=== PATIENT | female | born 1970 | race American Indian/Alaskan Native ===

== ENCOUNTER 2018-03-11 02:03 | Emergency (ER) | payer SELFPAY ==
[2018-03-11 08:17] VITALS: BP 122/72
[2018-03-11 09:15] LABS: Bacteria,Urine 2+ /HPF (Negative); Mucus,Urine 2+ /HPF
[2018-03-11 09:18] LABS: HCG Qualitative,Urine Negative (Negative)
[2018-03-11 09:29] LABS: Bilirubin,Urine NEG (Negative); Blood,Urine SM (Negative); Color,Urine Yellow (Yellow); Protein,Urine <15 mg/dL mg/dL (Negative); Urobilinogen,Urine < 2.0 mg/dL (<2.0)
--- NOTE | 2018-03-11 11:43 | Emergency Department Report ---
ED Abdominal Pain HPI - General Chief Complaint: Abdominal Pain Stated Complaint: HEADACHE,BACK PAIN Time Seen by Provider: 03/11/18 11:24 Source: patient Mode of arrival: Ambulatory Limitations: No Limitations - History of Present Illness Initial Comments: Patient is a 47-year-old black female who is complaining of lower abdominal pain dysuria for the last 3-4 days. Patient also states she's had a mild headache as 9 out of 10 severity. Patient is a poor historian. Patient states that it should think she had a seizure in the lobby as doesn't have a history of seizure. Patient states she just noted that she was shaking. Patient did not answer to come back multiple times from the waiting room. Patient was sleeping. Patient denies any nausea vomiting diarrhea at this time. Severity scale (0 -10): 5 - Related Data Previous Rx's Medication Instructions Recorded Last Taken Type Ibuprofen [Motrin] 600 mg PO Q8H PRN #20 tablet 03/11/18 Unknown Rx Nitrofurantoin Monohyd/M-Cryst 100 mg PO BID #14 capsule 03/11/18 Unknown Rx [Macrobid 100 mg Capsule] Allergies Allergy/AdvReac Type Severity Reaction Status Date / Time Penicillins Allergy Swelling Verified 03/11/18 03:27 ED Review of Systems ROS: Stated complaint: HEADACHE,BACK PAIN Other details as noted in HPI Comment: All other systems reviewed and negative ED Past Medical Hx - Past Medical History Previous Medical History?: Yes Additional medical history: hypoglycemia - Surgical History Past Surgical History?: Yes Additional Surgical History: c section - Social History Smoking Status: Never Smoker Substance Use Type: None - Medications Home Medications: Home Medications Medication Instructions Recorded Confirmed Last Taken Type Ibuprofen [Motrin] 600 mg PO Q8H PRN #20 tablet 03/11/18 Unknown Rx Nitrofurantoin Monohyd/M-Cryst 100 mg PO BID #14 capsule 03/11/18 Unknown Rx [Macrobid 100 mg Capsule] ED Physical Exam - General Limitations: No Limitations General appearance: alert, in no apparent distress - Head Head exam: Present: atraumatic, normocephalic - Eye Eye exam: Present: normal appearance - ENT ENT exam: Present: mucous membranes moist - Neck Neck exam: Present: normal inspection - Respiratory Respiratory exam: Present: normal lung sounds bilaterally. Absent: respiratory distress, wheezes, rales, rhonchi - Cardiovascular Cardiovascular Exam: Present: regular rate, normal rhythm. Absent: systolic murmur, diastolic murmur, rubs, gallop - GI/Abdominal GI/Abdominal exam: Present: soft, normal bowel sounds. Absent: distended, tenderness, guarding, rebound - Extremities Exam Extremities exam: Present: normal inspection - Back Exam Back exam: Present: normal inspection - Neurological Exam Neurological exam: Present: alert, oriented X3 - Psychiatric Psychiatric exam: Present: normal affect, normal mood - Skin Skin exam: Present: warm, dry, intact, normal color. Absent: rash ED Course Vital Signs 03/11/18 03/11/18 03/11/18 03:11 03:23 08:16 Temperature 97.7 F 97.7 F 98 F Pulse Rate 69 70 61 Respiratory 18 17 20 Rate Blood Pressure 114/66 114/60 122/72 O2 Sat by Pulse 100 99 100 Oximetry ED Medical Decision Making - Lab Data Lab Results 03/11/18 Range/Units 08:28 Urine Color Yellow (Yellow) Urine Turbidity Clear (Clear) Urine pH 5.0 (5.0-7.0) Ur Specific [place] 1.025 (1.003-1.030) Urine Protein <15 mg/dl (Negative) mg/dL Urine Glucose (UA) Neg (Negative) mg/dL Urine Ketones Neg (Negative) mg/dL Urine Blood Sm (Negative) Urine Nitrite Neg (Negative) Ur Reducing Substances Not Reportable Urine Bilirubin Neg (Negative) Urine Ictotest Not Reportable Urine Urobilinogen < 2.0 (<2.0) mg/dL Ur Leukocyte Esterase Lg (Negative) Urine WBC (Auto) 20.0 H (0.0-6.0) /HPF Urine RBC (Auto) 30.0 (0.0-6.0) /HPF U Epithel Cells (Auto) 39.0 H (0-13.0) /HPF Urine Bacteria (Auto) 2+ (Negative) /HPF Urine Mucus 2+ /HPF Urine Yeast (Budding) 2+ /HPF Urine HCG, Qual Negative (Negative) - Medical Decision Making The patient is a 47-year-old black female has a UTI per history and urinalysis. Patient is a poor historian and may have some mental health issues. Patient did not answer her name was called multiple times. Patient also is stating that she thinks she had a seizure however when she's describing was just some chills and shaking may have been a fever. Patient be discharged home with antibiotics at this time. Critical care attestation.: If time is entered above; I have spent that time in minutes in the direct care of this critically ill patient, excluding procedure time. ED Disposition Clinical Impression: UTI (urinary tract infection) Qualifiers: Urinary tract infection type: acute cystitis Hematuria presence: with hematuria Qualified Code(s): N30.01 - Acute cystitis with hematuria Disposition: TO HOME OR SELFCARE Is pt being admited?: No Does the pt Need Aspirin: No Condition: Stable Instructions: Abdominal Pain (ED), Urinary Tract Infection in Women (ED) Referrals: PRIMARY CARE, [Primary Care Provider] - 3-5 Days
== END 2018-03-11 11:49 | disposition home or self-care (01) ==
LOC: ED 02:03
DX: N30.01 Acute cystitis with hematuria (principal); Z88.0 Allergy status to penicillin
CPT/HCPCS: 81001; 81025; 99282

== ENCOUNTER 2018-03-22 00:03 | Emergency (ER) | payer SELFPAY ==
[2018-03-22 00:17] VITALS: BP 114/78
[2018-03-22] MEDS ORDERED: TYLENOL ONE (00:23)
[2018-03-22] MEDS ORDERED: TYLENOL PO ONE (00:23)
== END 2018-03-22 04:10 | disposition left against medical advice (07) ==
LOC: ED 00:03
DX: R51 Headache (principal); Z53.21 Procedure and treatment not carried out due to patient leaving prior to being seen by health care provider

== ENCOUNTER 2018-03-24 07:35 | Emergency (ER) | payer SELFPAY ==
[2018-03-24 07:48] VITALS: BP 116/68
[2018-03-24] MEDS ORDERED: BACTRIM DS PO ONE (08:05)
[2018-03-24] MEDS ORDERED: CLARITIN PO ONE (08:05)
--- NOTE | 2018-03-24 08:05 | Emergency Department Report ---
Minor Respiratory - HPI Chief Complaint: Upper Respiratory Infection Stated Complaint: FLU LIKE SYMPTOMS Time Seen by Provider: 03/24/18 08:01 Duration: over week Severity: severe (generalized body ache 8 out of 10 headache 2/10) Minor Respiratory: Yes Rhinorrhea (nasal congestion), Yes Able to Tolerate Fluids, Yes Cough (dry cough), No Sore Throat, No Ear Pain, No Sick Contacts, No Hemoptysis, No Chest Pain, No Shortness of Breath, No Fever Other History: Patient reports that she's been having generalized body aches at 8/10 and achy and feeling of chills, headache on and off at 2/10 and achy, dry cough, nasal congestion and runny nose for over a week. She denies taking any medications that she is homeless. She says she sleeps outside. Reports some coughing. Denies any sore throat, chest pain or shortness of breath. Denies any nausea or vomiting. Denies any dizziness or blurred vision. Medical condition for hypoglycemia and anemia. ED Review of Systems ROS: Stated complaint: FLU LIKE SYMPTOMS Other details as noted in HPI Constitutional: chills. denies: fever, weakness Eyes: denies: eye pain, eye discharge, vision change ENT: congestion. denies: ear pain, throat pain, dental pain, epistaxis Respiratory: cough. denies: shortness of breath, SOB with exertion, SOB at rest , stridor, wheezing Cardiovascular: denies: chest pain, palpitations, edema, syncope Gastrointestinal: denies: abdominal pain, nausea, vomiting, diarrhea, constipation Genitourinary: denies: hematuria Musculoskeletal: myalgia. denies: back pain, joint swelling, arthralgia Skin: denies: rash, lesions Neurological: headache. denies: weakness, numbness, paresthesias, abnormal gait , vertigo Psychiatric: other (homeless) ED Past Medical Hx - Past Medical History Previous Medical History?: Yes Additional medical history: hypoglycemia, anemia - Surgical History Past Surgical History?: Yes Additional Surgical History: c section - Family History Family history: hypertension - Social History Smoking Status: Never Smoker Substance Use Type: None Other Social History: Patient is homeless - Medications Home Medications: Home Medications Medication Instructions Recorded Confirmed Last Taken Type Cetirizine HCl [ZyrTEC] 10 mg PO QAM 7 Days #7 capsule 05/20/18 Unknown Rx Fluticasone [Flonase] 1 spray NS QDAY 14 Days #1 bottle 03/24/18 Unknown Rx Sulfamethoxazole/Trimethoprim 1 each PO Q12H 7 Days #14 tablet 03/24/18 Unknown Rx [Bactrim Ds Tablet] Minor Respiratory Exam - Exam General: Vital signs noted. No distress. Alert and acting appropriately. This is a 47-year-old female, appears unkept ,no acute distress and nontoxic in appearance. HEENT: Yes Moist Mucous Membranes (uvula midline and oral airways patent), Yes Rhinorrhea (congestion with erythema and clear drainage), No Pharyngeal Erythema , No Pharyngeal Exudates, No Conjuctival Injection, No Frontal Tenderness, No Maxillary Tenderness Ear: Neither TM Bulge (congested without erythema), Neither TM Erythema, Neither EAC Pain, Neither EAC Discharge Neck: Yes Supple (full range of motion, no C-spine tenderness), No Adenopathy Lungs: Yes Good Air Exchange (CTAB), Yes Cough (dry cough), No Wheezes, No Ronchi, No Stridor, No Labored Respirations, No Retractions, No Use of Accessory Muscles, No Other Abnormal Lung Sounds Heart: Yes Regular (S1S2), No Murmur Abdomen: Yes Normal Bowel Sounds (in all quadrants), No Tenderness (NTTP in all quadrants), No Peritoneal Signs Skin: No Rash, No Edema Neurologic: Alert and oriented 3, normal gait Musculoskeletal: Unremarkable. Extremity: No clubbing, cyanosis or edema. +2 pulses to all extremities and no neurovascular compromise ED Course Vital Signs 03/24/18 07:45 Temperature 98.9 F Pulse Rate 68 Respiratory 16 Rate Blood Pressure 116/68 O2 Sat by Pulse 98 Oximetry - Reevaluation(s) Reevaluation #1: 03/24/18 10:11 Patient given Claritin 10 mg by mouth and Bactrim DS one tablet by mouth in emergency room. She reports that she is homeless and unable to afford medication. Reevaluation #2: 03/24/18 10:28 Patient given Motrin 800 mg po for pain. ED Medical Decision Making - Medical Decision Making ED course: Patient reports upper respiratory symptoms for over a week. She was found to have acute sinusitis, upper respiratory cough and congestion and was treated with Bactrim DS one by mouth emergency room and given Claritin 10 mg by mouth. Patient is homeless and says she is unable to afford her medication. I discussed her diagnosis and told her that she can get Bactrim DS at [facility] of free and to flush her nostrils with nasal saline wash and also she can take over -the-counter Claritin which will help to relieve her congestion. She was understanding. Patient's given information on some outside Medical Center and also good Rx prescription card. Discharged home in stable condition. Critical care attestation.: If time is entered above; I have spent that time in minutes in the direct care of this critically ill patient, excluding procedure time. ED Disposition Clinical Impression: URI with cough and congestion, Homelessness Sinusitis Qualifiers: Sinusitis location: unspecified location Chronicity: acute Recurrence: not specified as recurrent Qualified Code(s): J01.90 - Acute sinusitis, unspecified Disposition: TO HOME OR SELFCARE Is pt being admited?: No Does the pt Need Aspirin: No Condition: Stable Instructions: Sinusitis (ED) Additional Instructions: Please increase her fluid intake Flush nostrils with saline nasal spray take antibiotic as prescribed F/U with primary care physician as instructed Prescriptions: Cetirizine HCl [ZyrTEC] 10 mg PO QAM 7 Days #7 capsule Fluticasone [Flonase] 1 spray NS QDAY 14 Days #1 bottle Sulfamethoxazole/Trimethoprim [Bactrim Ds Tablet] 1 each PO Q12H 7 Days #14 tablet Referrals: PRIMARY CARE, [Primary Care Provider] - 3-5 Days [facility] [Outside] - 2-3 Days [facility] [Outside] - 3-5 Days [facility] [Outside] - 3-5 Days [facility] [Outside] - 3-5 Days [facility] [Outside] - 3-5 Days
[2018-03-24] MEDS ORDERED: MOTRIN PO ONE (10:13)
== END 2018-03-24 10:32 | disposition home or self-care (01) ==
LOC: ED 07:35
DX: J01.90 Acute sinusitis, unspecified (principal); Z86.2 Personal history of diseases of the blood and blood-forming organs and certain disorders involving the immune mechanism; Z88.0 Allergy status to penicillin; Z59.0 Homelessness
CPT/HCPCS: 99282

== ENCOUNTER 2018-03-27 15:34 | Inpatient (IN) | payer SELFPAY ==
[2018-03-27] MEDS ORDERED: D50W (25GM) Syringe IV ONE ×2 (16:00→16:24)
--- NOTE | 2018-03-27 16:18 | Cat Scan Report ---
FINAL REPORT EXAM: CT HEAD/BRAIN WO CON HISTORY: neuro deficits < 6hrs or sx present upon awakening TECHNIQUE: Standard unenhanced CT of the head at 5.0 millimeter axial increments. PRIORS: None. FINDINGS: The ventricular system is normal in size and configuration. There is no evidence for parenchymal volume loss. There is no evidence for mass lesion, mass effect, midline shift, acute intracranial hemorrhage, or acute ischemia/ infarction. No evidence for acute skull fracture is seen. No abnormality in the overlying scalp soft tissues is seen. Visualized paranasal sinuses are clear. IMPRESSION: Negative CT of the head. No acute intracranial process noted.
[2018-03-27 16:34] LABS: Basophils % (Auto) 0.9 % (0.0-1.8); Eosinophils % (Auto) 0.7 % (0.0-4.3); Lymphocytes % (Auto) 22.4 % (13.4-35.0); Mean Corpuscular HGB Conc 29 % (30-34); Mean Corpuscular Hemoglobin 29 pg (28-32); Mean Corpuscular Volume 103 fl (79-97); Monocytes # (Auto) 0.5 K/mm3 (0.0-0.8); Monocytes % (Auto) 10.8 % (0.0-7.3); Red Blood Count 3.79 M/mm3 (3.65-5.03); Red Cell Distribution Width 19.4 % (13.2-15.2)
[2018-03-27 16:45] LABS: Hemoglobin 11.1 gm/dl (10.1-14.3); Platelet Count 357 K/mm3 (140-440)
[2018-03-27 16:55] LABS: BUN/Creatinine Ratio 9; Blood Urea Nitrogen 10 mg/dL (7-17); Calcium 8.9 mg/dL (8.4-10.2); Hemolysis Index 207
[2018-03-27 17:25] LABS: INR 1.07 (0.87-1.13); Partial Thromboplastin Time 30.4 Sec. (24.2-36.6)
[2018-03-27 17:50] LABS: BUN/Creatinine Ratio 9; Blood Urea Nitrogen 10 mg/dL (7-17); Hemolysis Index 26
--- NOTE | 2018-03-27 20:14 | Cat Scan Report ---
FINAL REPORT PROCEDURE: CT ANGIO HEAD TECHNIQUE: Computerized tomographic angiography of the head was performed after the IV injection of iodinated nonionic contrast including image processing. The image data was postprocessed using 2-dimensional multiplanar reformatted (MPR) and 3-dimensional (MIP and/or volume rendered) techniques. HISTORY: CVA COMPARISON: No prior studies are available for comparison. FINDINGS: Visualized portions of the cervical internal carotid arteries appear widely patent. The carotid siphons appear widely patent. The A1 segments and anterior cerebral arteries as well as the middle cerebral arteries appear widely patent. No evidence of stenosis or occlusion. No changes are seen that would suggest vascular malformation or aneurysm. The vertebral arteries and basilar artery are widely patent as are the posterior cerebral arteries. No abnormalities are identified. Dural sinuses appear intact. No abnormal areas of enhancement are identified. Visualized portions of the paranasal sinuses are clear. Mastoid air cells are clear. IMPRESSION: The anterior and the posterior circulation are intact. No acute or focal abnormalities are identified
--- NOTE | 2018-03-27 20:40 | Emergency Department Report ---
HPI - General Chief Complaint: Altered Mental Status Time Seen by Provider: 03/27/18 16:12 - HPI HPI: 47-year-old female presents to the emergency department via EMS after she was found altered, landing on the ground. Some bystanders found her to have slurred speech and what appeared to be left-sided weakness and they brought her in through triage. At this point the patient did appear to have some difficulty with speech and some weakness so a code stroke was called. She was found to have a blood sugar of 40 and was given an amp of D50. The patient herself is currently a poor story and secondary to her current condition. She was here 3 days ago with some flulike symptoms and was discharged from the emergency department. The patient is known to be homeless. ED Past Medical Hx - Past Medical History Additional medical history: hypoglycemia, anemia - Surgical History Additional Surgical History: c section - Social History Smoking Status: Never Smoker - Medications Home Medications: Home Medications Medication Instructions Recorded Confirmed Last Taken Type Cetirizine HCl [ZyrTEC] 10 mg PO QAM 7 Days #7 capsule 03/24/18 Unknown Rx Fluticasone [Flonase] 1 spray NS QDAY 14 Days #1 bottle 03/24/18 Unknown Rx Sulfamethoxazole/Trimethoprim 1 each PO Q12H 7 Days #14 tablet 03/24/18 Unknown Rx [Bactrim Ds Tablet] ED Review of Systems ROS: Stated complaint: PSYCH/LEG PAIN Other details as noted in HPI Comment: Unobtainable due to pts medical conditions Constitutional: weakness Neurological: weakness, confusion, other (difficulty with speech) Physical Exam - Physical Exam Vital Signs: Vital Signs 03/27/18 03/27/18 03/27/18 15:46 16:15 18:58 Temperature 98.2 F 97.5 F L Pulse Rate 87 69 78 Respiratory 18 18 18 Rate Blood Pressure 98/71 Blood Pressure 108/61 104/70 [Left] O2 Sat by Pulse 97 98 100 Oximetry Physical Exam: GENERAL: Patient is ill-appearing. HENT: Normocephalic. Atraumatic. Patient has moist mucous membranes. The patient mostly keeps her jaw clenched. She has her head cocked to the left. EYES: Extraocular motions are intact. Pupils equal reactive to light bilaterally. NECK: Supple. Trachea is midline. CHEST/LUNGS: Clear to auscultation. There is no respiratory distress noted. HEART/CARDIOVASCULAR: Regular. There is no tachycardia. There is no murmur. ABDOMEN: Abdomen is soft, nontender. Patient has normal bowel sounds. There is no abdominal distention. SKIN: Skin is warm and dry. NEURO: Patient is awake and appears to respond appropriately. She has some slurred speech but also keeps her jaw clenched while talking. She does appear to move her extremities to painful stimuli but when assessing for extremity drift she allows all 4 extremities to fall to the gurney. No facial asymmetry. MUSCULOSKELETAL: There is no tenderness or deformity. There is no evidence of acute injury. ED Course Vital Signs 03/27/18 03/27/18 03/27/18 15:46 16:15 18:58 Temperature 98.2 F 97.5 F L Pulse Rate 87 69 78 Respiratory 18 18 18 Rate Blood Pressure 98/71 Blood Pressure 108/61 104/70 [Left] O2 Sat by Pulse 97 98 100 Oximetry - Consultations Consultation #1: I spoke to the telemedicine neurologist, Dr. Selby, who recommended a CT angiography of the head and neck. If there are signs of occlusion or obstruction then the patient may need transfer to another facility for thrombectomy. Otherwise, if negative, the patient be admitted to [facility] for further evaluation and treatment. 03/27/18 20:39 ED Medical Decision Making - Lab Data Result diagrams: 03/27/18 16:12 03/27/18 17:22 - Radiology Data Radiology results: report reviewed EXAM: CT HEAD/BRAIN WO CON HISTORY: neuro deficits lt; 6hrs or sx present upon awakening TECHNIQUE: Standard unenhanced CT of the head at 5.0 millimeter axial increments. PRIORS: None. FINDINGS: The ventricular system is normal in size and configuration. There is no evidence for parenchymal volume loss. There is no evidence for mass lesion, mass effect, midline shift, acute intracranial hemorrhage, or acute ischemia/ infarction. No evidence for acute skull fracture is seen. No abnormality in the overlying scalp soft tissues is seen. Visualized paranasal sinuses are clear. IMPRESSION: Negative CT of the head. No acute intracranial process noted. Transcribed By: [facility] Dictated By: NORBERT ROSAS MD Electronically Authenticated By: NORBERT ROSAS MD Signed Date/Time: 03/27/18 6887 PROCEDURE: CT ANGIO HEAD TECHNIQUE: Computerized tomographic angiography of the head was performed after the IV injection of iodinated nonionic contrast including image processing. The image data was postprocessed using 2-dimensional multiplanar reformatted (MPR) and 3-dimensional (MIP and/or volume rendered) techniques. HISTORY: CVA COMPARISON: No prior studies are available for comparison. FINDINGS: Visualized portions of the cervical internal carotid arteries appear widely patent. The carotid siphons appear widely patent. The A1 segments and anterior cerebral arteries as well as the middle cerebral arteries appear widely patent. No evidence of stenosis or occlusion. No changes are seen that would suggest vascular malformation or aneurysm. The vertebral arteries and basilar artery are widely patent as are the posterior cerebral arteries. No abnormalities are identified. Dural sinuses appear intact. No abnormal areas of enhancement are identified. Visualized portions of the paranasal sinuses are clear. Mastoid air cells are clear. IMPRESSION: The anterior and the posterior circulation are intact. No acute or focal abnormalities are identified Transcribed By: NOLAN Dictated By: ROSELIA HELMS MD Electronically Authenticated By: ROSELIA HELMS MD Signed Date/Time: 03/27/182010 PROCEDURE: CT ANGIO NECK TECHNIQUE: Computerized tomographic angiography of the neck was performed after the IV injection of iodinated nonionic contrast including image processing. The image data was postprocessed using 2-dimensional multiplanar reformatted (MPR) and 3-dimensional (MIP and/or volume rendered) techniques. HISTORY: CVA COMPARISON: No prior studies are available for comparison. Note: Assessment of carotid artery stenosis is based on measurement of the distal internal carotid artery diameter as the denominator for stenosis calculations and the [place] Symptomatic Carotid Endarterectomy Trial (NASCET) stenosis criteria . CPT 3100F FINDINGS: Visualized portions of the aortic arch are unremarkable. The in The right and left common carotid arteries, the carotid bulbs and visualized portions of the internal carotid arteries appear widely patent. Vertebral arteries bilaterally are widely patent. Nonspecific subcentimeter lymph nodes scattered in the right and left side of the neck. Parotid glands, the parapharyngeal spaces, the submandibular glands, the larynx and the thyroid gland are unremarkable. Prevertebral soft tissues are unremarkable. The epiglottis is unremarkable. IMPRESSION: Carotid arteries and vertebral arteries appear widely patent without occlusion, significant stenosis or dissection. Transcribed By: NOLAN Dictated By: ROSELIA HELMS MD Electronically Authenticated By: ROSELIA HELMS MD Signed Date/Time: 03/27/182053 - Medical Decision Making This patient came in the emergency department after she was found altered, lying on the ground with some deficits. On examination she appears to have some slurred speech but does appear to talk with a clenched jaw. When assessing for drift all 4 of her extremities well. The gurney with painful stimuli she does appear to move them. She came in as a code stroke so a CT of the head without contrast was done immediately that resulted as negative for any acute process. Telemedicine neurology was consult at and felt that with her generalized symptoms a CT angiography of the head and neck is warranted. This was completed that did not show any significant stenosis, obstructions or thrombosis. The rest of her labs are mostly unremarkable and do not show any etiology of her symptoms. The patient will be admitted to the hospital for further evaluation and has been accepted for admission by the hospitalist service. - Differential Diagnosis CVA, TIA, malingering, psychosis Critical Care Time: No Critical care attestation.: If time is entered above; I have spent that time in minutes in the direct care of this critically ill patient, excluding procedure time. ED Disposition Clinical Impression: Slurred speech, Weakness Disposition: [id number] OP ADMIT IP TO THIS HOSP Is pt being admited?: Yes Condition: Fair
--- NOTE | 2018-03-27 20:57 | Cat Scan Report ---
FINAL REPORT PROCEDURE: CT ANGIO NECK TECHNIQUE: Computerized tomographic angiography of the neck was performed after the IV injection of iodinated nonionic contrast including image processing. The image data was postprocessed using 2-dimensional multiplanar reformatted (MPR) and 3-dimensional (MIP and/or volume rendered) techniques. HISTORY: CVA COMPARISON: No prior studies are available for comparison. Note: Assessment of carotid artery stenosis is based on measurement of the distal internal carotid artery diameter as the denominator for stenosis calculations and the [place] Symptomatic Carotid Endarterectomy Trial (NASCET) stenosis criteria . CPT 3100F FINDINGS: Visualized portions of the aortic arch are unremarkable. The in The right and left common carotid arteries, the carotid bulbs and visualized portions of the internal carotid arteries appear widely patent. Vertebral arteries bilaterally are widely patent. Nonspecific subcentimeter lymph nodes scattered in the right and left side of the neck. Parotid glands, the parapharyngeal spaces, the submandibular glands, the larynx and the thyroid gland are unremarkable. Prevertebral soft tissues are unremarkable. The epiglottis is unremarkable. IMPRESSION: Carotid arteries and vertebral arteries appear widely patent without occlusion, significant stenosis or dissection.
[2018-03-27] MEDS ORDERED: DULCOLAX PR PRN (21:55)
[2018-03-27] MEDS ORDERED: APRESOLINE IV PRN (21:55)
[2018-03-27] MEDS ORDERED: REGLAN PO PRN (21:55)
[2018-03-27] MEDS ORDERED: ZOFRAN IV PRN (21:55)
[2018-03-27] MEDS ORDERED: MILK OF MAGNESIA PO PRN (21:55)
--- NOTE | 2018-03-27 22:00 | History and Physical Report ---
History of Present Illness Date of examination: 03/27/18 History of present illness: 47-year-old woman with history hypertension of was brought to the emergency room because she was found on the sidewalk. The patient was brought to the emergency room as a code stroke because of reported slurred speech and weakness in her left extremity. Patient is uncooperative, she mumbles, history, review of system is unable to be obtained. Patient was seen here 3 days ago and was diagnosed with a sinus infection, on that visit she stated that she is homeless PAST MEDICAL HISTORY:Hypertension PAST SURGICAL HISTORY: SOCIAL HISTORY: Unknown FAMILY HISTORY: Unknown Medications and Allergies Allergies Allergy/AdvReac Type Severity Reaction Status Date / Time Penicillins Allergy Swelling Verified 03/27/18 15:46 Home Medications Medication Instructions Recorded Confirmed Last Taken Type Cetirizine HCl [ZyrTEC] 10 mg PO QAM 7 Days #7 capsule 03/24/18 Unknown Rx Fluticasone [Flonase] 1 spray NS QDAY 14 Days #1 bottle 03/24/18 Unknown Rx Sulfamethoxazole/Trimethoprim 1 each PO Q12H 7 Days #14 tablet 03/24/18 Unknown Rx [Bactrim Ds Tablet] Exam - Physical Exam Narrative exam: Gen. appearance: Patient lying in bed, no apparent distress HEENT: Normocephalic, atraumatic, pupils equally round and reactive to light, unable to do extraocular movement, and no sclericterus,. No JVD or thyromegaly or nodule,neck supple, no carotid bruit ,mucous membranes moist, unable to examine oral cavity Heart: S1, S2, regular rate and rhythm Lungs: Clear to auscultation anteriorly bilaterally, breathing comfortable Abdomen: Positive bowel sounds, nontender, nondistended, no organomegaly Extremity: No edema, cyanosis, clubbing Skin: No rash, nodules, warm, dry Neuro: Uncooperative - Constitutional Vitals: Temp Pulse Resp BP Pulse Ox 97.5 F L 78 18 104/70 100 03/27/18 16:15 03/27/18 18:58 03/27/18 18:58 03/27/18 18:58 03/27/18 18:58 Results - Labs CBC & Chem 7: 03/27/18 16:12 03/27/18 17:22 Labs: Abnormal lab results 03/27/18 03/27/18 03/27/18 Range/Units 15:58 16:12 16:12 WBC 4.3 L (4.5-11.0) K/mm3 MCV 103 H (79-97) fl MCHC 29 L (30-34) % RDW 19.4 H (13.2-15.2) % [place] % (Auto) 10.8 H (0.0-7.3) % Lymph # 1.0 L (1.2-5.4) K/mm3 Sodium 132 L (137-145) mmol/L Potassium 5.7 H (3.6-5.0) mmol/L Chloride 95.4 L (98-107) mmol/L Glucose 1138 H* (65-100) mg/dL POC Glucose 40 L (70-105) 03/27/18 03/27/18 03/27/18 Range/Units 16:20 17:22 17:30 WBC (4.5-11.0) K/mm3 MCV (79-97) fl MCHC (30-34) % RDW (13.2-15.2) % [place] % (Auto) (0.0-7.3) % Lymph # (1.2-5.4) K/mm3 Sodium 133 L (137-145) mmol/L Potassium (3.6-5.0) mmol/L Chloride 97.9 L (98-107) mmol/L Glucose 144 H (65-100) mg/dL POC Glucose 185 H 164 H (70-105) - Imaging and Cardiology EKG: image reviewed CT Scan - head: report reviewed Assessment and Plan CTA head and neck reviewed Assessment Possible stroke versus psych Hypertension Plan Admit to medicine Obtain MRI of the head, neuro checks Start aspirin, statin, IV hydralazine as needed for blood pressure control Consult neuro physical, and occupational therapy Check cardiac enzymes DVT prophylaxis
[2018-03-27 22:35] LABS: Creatine Kinase MB 3.1 ng/mL (0.0-4.0)
[2018-03-28] MEDS ORDERED: NACL 0.9% 1000 ML 1,000 ML IV SCH (02:00)
[2018-03-28 05:32] LABS: Creatine Kinase MB 3.8 ng/mL (0.0-4.0)
[2018-03-28 05:34] LABS: Chol/HDL Ratio 2.34 %
--- NOTE | 2018-03-28 07:47 | Progress Note ---
Assessment and Plan Assessment and plan: Patient is a 47 yo woman who is homeless by report with a history of hypertension who presented to ED with ams, confusion, slurred speech and left leg/side weakness. She was found to have blood glucose of 40 and given dextrose. CTA neck IMPRESSION: Carotid arteries and vertebral arteries appear widely patent without occlusion, significant stenosis or dissection. CTA head IMPRESSION: The anterior and the posterior circulation are intact. No acute or focal abnormalities are identified CT brain wo contrast IMPRESSION: Negative CT of the head. No acute intracranial process noted. -Acute metabolic encephalopathy due to hypoglycemia: add dextrose to ivf -Hypoglycemia, no history of dm, i don't know if she took insulin: check a1c, and accucheck -Dyslipidemia: treat with statin -Hypertension: low salt diet -Hyperglycemia, ?new Dm: check a1c. History Interval history: Patient was seen and examined. Follow-up on current diagnosis of AMS. Overnight uneventful. Patient denies any chest pain, shortness breath, nausea/vomiting or severe headaches. Imaging, nursing note, chart, labs and old chart reviewed. Discussed with patient. Hospitalist Physical - Physical exam Narrative exam: GEN: WDWN, NAD, Awake, will mumble orientated x 2 HEENT: NCAT, EOMI, PERRL, OP Clear NECK: supple, no adenopathy, no thyromegaly, no JVD CVS/HEART: RRR, normal S1S2, pulses present bilaterally CHEST/LUNGS: CTA B, Symmetrical chest expansion, good air entry bilaterally GI/Abdomen: soft, NTND, good bowel sounds, no guarding or rebound /Bladder: no suprapubic tenderness, no CVA or paraspinal tenderness EXT/Skin: no c/c/e, no obvious rash MSK: not following commands Neuro: CN 2-12 grossly intact, doesn't follow commands Psych: calm - Constitutional Vitals: Temp Pulse Resp BP Pulse Ox 98.6 F 78 18 104/70 100 03/28/18 07:05 03/27/18 18:58 03/27/18 18:58 03/27/18 18:58 03/27/18 18:58 Results - Labs CBC & Chem 7: 03/27/18 16:12 03/27/18 17:22 Labs: Laboratory Last Values WBC 4.3 K/mm3 (4.5-11.0) L 03/27/18 16:12 RBC 3.79 M/mm3 (3.65-5.03) 03/27/18 16:12 Hgb 11.1 gm/dl (10.1-14.3) 03/27/18 16:12 Hct 39.0 % (30.3-42.9) 03/27/18 16:12 MCV 103 fl (79-97) H 03/27/18 16:12 MCH 29 pg (28-32) 03/27/18 16:12 MCHC 29 % (30-34) L 03/27/18 16:12 RDW 19.4 % (13.2-15.2) H 03/27/18 16:12 Plt Count 357 K/mm3 (140-440) 03/27/18 16:12 Lymph % (Auto) 22.4 % (13.4-35.0) 03/27/18 16:12 [place] % (Auto) 10.8 % (0.0-7.3) H 03/27/18 16:12 Eos % (Auto) 0.7 % (0.0-4.3) 03/27/18 16:12 Baso % (Auto) 0.9 % (0.0-1.8) 03/27/18 16:12 Lymph # 1.0 K/mm3 (1.2-5.4) L 03/27/18 16:12 [place] # 0.5 K/mm3 (0.0-0.8) 03/27/18 16:12 Eos # 0.0 K/mm3 (0.0-0.4) 03/27/18 16:12 Baso # 0.0 K/mm3 (0.0-0.1) 03/27/18 16:12 Seg Neutrophils % 65.2 % (40.0-70.0) 03/27/18 16:12 Seg Neutrophils # 2.8 K/mm3 (1.8-7.7) 03/27/18 16:12 PT 14.5 Sec. (12.2-14.9) 03/27/18 16:12 INR 1.07 (0.87-1.13) 03/27/18 16:12 APTT 30.4 Sec. (24.2-36.6) 03/27/18 16:12 Thrombin Time 16.8 Sec. (15.1-19.6) 03/27/18 16:12 Sodium 133 mmol/L (137-145) L 03/27/18 17:22 Potassium 4.1 mmol/L (3.6-5.0) D 03/27/18 17:22 Chloride 97.9 mmol/L (98-107) L 03/27/18 17:22 Carbon Dioxide 25 mmol/L (22-30) 03/27/18 17:22 Anion Gap 14 mmol/L 03/27/18 17:22 BUN 10 mg/dL (7-17) 03/27/18 17:22 Creatinine 1.1 mg/dL (0.7-1.2) 03/27/18 17:22 Estimated GFR > 60 ml/min 03/27/18 17:22 BUN/Creatinine Ratio 9 % 03/27/18 17:22 Glucose 144 mg/dL (65-100) H 03/27/18 17:22 POC Glucose 164 (70-105) H 03/27/18 17:30 Calcium 9.0 mg/dL (8.4-10.2) 03/27/18 17:22 Total Creatine Kinase 248 units/L (30-135) H 03/28/18 04:55 CK-MB (CK-2) 3.8 ng/mL (0.0-4.0) 03/28/18 04:55 CK-MB (CK-2) Rel Index 1.5 (0-4) 03/28/18 04:55 Troponin T < 0.010 ng/mL (0.00-0.029) 03/28/18 04:55 Triglycerides 39 mg/dL (2-149) 03/28/18 04:55 Cholesterol 185 mg/dL (50-199) 03/28/18 04:55 LDL Cholesterol Direct 110 mg/dL (50-130) 03/28/18 04:55 HDL Cholesterol 79 mg/dL (40-59) H 03/28/18 04:55 Cholesterol/HDL Ratio 2.34 % 03/28/18 04:55
[2018-03-28] MEDS: ASPIRIN PO SCH (10:05)
[2018-03-28] MEDS: LOVENOX SUB-Q SCH (10:05)
[2018-03-28] MEDS ORDERED: D50W (25GM) Syringe IV PRN (12:26)
[2018-03-28] MEDS: HumaLOG SUB-Q SCH ×2 (18:01→22:41)
[2018-03-28] MEDS: PRAVACHOL PO SCH ×2 (22:41)
[2018-03-29] MEDS: NACL 0.9% 1000 ML 1,000 ML IV SCH ×2 (03:09→15:52)
[2018-03-29 05:12] LABS: Hematocrit 34.6 % (30.3-42.9); Hemoglobin 11.2 gm/dl (10.1-14.3); Mean Corpuscular HGB Conc 33 % (30-34); Mean Corpuscular Hemoglobin 29 pg (28-32); Mean Corpuscular Volume 89 fl (79-97); Platelet Count 346 K/mm3 (140-440); Red Cell Distribution Width 17.7 % (13.2-15.2)
[2018-03-29 05:24] LABS: BUN/Creatinine Ratio 17; Blood Urea Nitrogen 15 mg/dL (7-17); Calcium 8.4 mg/dL (8.4-10.2); Hemolysis Index 2
[2018-03-29] MEDS: HumaLOG SUB-Q SCH ×4 (08:09→22:40)
[2018-03-29] MEDS ORDERED: PRAVACHOL PO SCH (12:19)
--- NOTE | 2018-03-29 12:23 | Progress Note ---
Assessment and Plan Assessment and plan: Patient is a 47 yo woman who is homeless by report with a history of hypertension who presented to ED with ams, confusion, slurred speech and left leg/side weakness. She was found to have blood glucose of 40 and given dextrose. CTA neck IMPRESSION: Carotid arteries and vertebral arteries appear widely patent without occlusion, significant stenosis or dissection. CTA head IMPRESSION: The anterior and the posterior circulation are intact. No acute or focal abnormalities are identified CT brain wo contrast IMPRESSION: Negative CT of the head. No acute intracranial process noted. -Acute metabolic encephalopathy due to hypoglycemia: add dextrose to ivf -Hypoglycemia, no history of dm, i don't know if she took insulin: check a1c, and accucheck -Dyslipidemia: treat with statin -Hypertension: low salt diet -Hyperglycemia, ?new Dm: check a1c, 5.4 new issue is low blood pressure, she is not really eating much. will treat with ivf. mri pending, if mri brain negative for stroke and if sbp is above 90 then d /c to jail History Interval history: Patient was seen and examined. Follow-up on current diagnosis of AMS. Overnight bp was slightly low and she was given IV fluids. Patient denies any chest pain, shortness breath, nausea/vomiting or severe headaches. Imaging, nursing note, chart, labs and old chart reviewed. Discussed with patient. She is not cooperative. Hospitalist Physical - Physical exam Narrative exam: GEN: WDWN, NAD, Awake, mumbles orientated x 3 HEENT: NCAT, EOMI, PERRL, OP Clear NECK: supple, no adenopathy, no thyromegaly, no JVD CVS/HEART: RRR, normal S1S2, pulses present bilaterally CHEST/LUNGS: CTA B, Symmetrical chest expansion, good air entry bilaterally GI/Abdomen: soft, NTND, good bowel sounds, no guarding or rebound /Bladder: no suprapubic tenderness, no CVA or paraspinal tenderness EXT/Skin: no c/c/e, no obvious rash MSK: from x 4 ext Neuro: CN 2-12 grossly intact, gollow some commands Psych: calm - Constitutional Vitals: Temp Pulse Resp BP Pulse Ox 98.2 F 65 18 95/54 97 03/29/18 04:43 03/29/18 09:10 03/29/18 04:43 03/29/18 09:10 03/29/18 08:15 Results - Labs CBC & Chem 7: 03/29/18 03:38 03/29/18 03:38 Labs: Laboratory Last Values WBC 4.1 K/mm3 (4.5-11.0) L 03/29/18 03:38 RBC 3.90 M/mm3 (3.65-5.03) 03/29/18 03:38 Hgb 11.2 gm/dl (10.1-14.3) 03/29/18 03:38 Hct 34.6 % (30.3-42.9) 03/29/18 03:38 MCV 89 fl (79-97) 03/29/18 03:38 MCH 29 pg (28-32) 03/29/18 03:38 MCHC 33 % (30-34) 03/29/18 03:38 RDW 17.7 % (13.2-15.2) H 03/29/18 03:38 Plt Count 346 K/mm3 (140-440) 03/29/18 03:38 Lymph % (Auto) 22.4 % (13.4-35.0) 03/27/18 16:12 [place] % (Auto) 10.8 % (0.0-7.3) H 03/27/18 16:12 Eos % (Auto) 0.7 % (0.0-4.3) 03/27/18 16:12 Baso % (Auto) 0.9 % (0.0-1.8) 03/27/18 16:12 Lymph # 1.0 K/mm3 (1.2-5.4) L 03/27/18 16:12 [place] # 0.5 K/mm3 (0.0-0.8) 03/27/18 16:12 Eos # 0.0 K/mm3 (0.0-0.4) 03/27/18 16:12 Baso # 0.0 K/mm3 (0.0-0.1) 03/27/18 16:12 Seg Neutrophils % 65.2 % (40.0-70.0) 03/27/18 16:12 Seg Neutrophils # 2.8 K/mm3 (1.8-7.7) 03/27/18 16:12 PT 14.5 Sec. (12.2-14.9) 03/27/18 16:12 INR 1.07 (0.87-1.13) 03/27/18 16:12 APTT 30.4 Sec. (24.2-36.6) 03/27/18 16:12 Thrombin Time 16.8 Sec. (15.1-19.6) 03/27/18 16:12 Sodium 139 mmol/L (137-145) 03/29/18 03:38 Potassium 3.9 mmol/L (3.6-5.0) 03/29/18 03:38 Chloride 101.3 mmol/L (98-107) 03/29/18 03:38 Carbon Dioxide 26 mmol/L (22-30) 03/29/18 03:38 Anion Gap 16 mmol/L 03/29/18 03:38 BUN 15 mg/dL (7-17) 03/29/18 03:38 Creatinine 0.9 mg/dL (0.7-1.2) 03/29/18 03:38 Estimated GFR > 60 ml/min 03/29/18 03:38 BUN/Creatinine Ratio 17 % 03/29/18 03:38 Glucose 75 mg/dL (65-100) 03/29/18 03:38 POC Glucose 74 (70-105) 03/29/18 06:18 Hemoglobin A1c 5.4 % (4-6) 03/28/18 12:35 Calcium 8.4 mg/dL (8.4-10.2) 03/29/18 03:38 Total Creatine Kinase 248 units/L (30-135) H 03/28/18 04:55 CK-MB (CK-2) 3.8 ng/mL (0.0-4.0) 03/28/18 04:55 CK-MB (CK-2) Rel Index 1.5 (0-4) 03/28/18 04:55 Troponin T < 0.010 ng/mL (0.00-0.029) 03/28/18 04:55 Triglycerides 39 mg/dL (2-149) 03/28/18 04:55 Cholesterol 185 mg/dL (50-199) 03/28/18 04:55 LDL Cholesterol Direct 110 mg/dL (50-130) 03/28/18 04:55 HDL Cholesterol 79 mg/dL (40-59) H 03/28/18 04:55 Cholesterol/HDL Ratio 2.34 % 03/28/18 04:55
[2018-03-29] MEDS: TYLENOL PO PRN (12:27)
[2018-03-29] MEDS: ASPIRIN PO SCH (12:28)
[2018-03-29] MEDS: LOVENOX SUB-Q SCH (12:28)
--- NOTE | 2018-03-29 12:29 | Discharge Summary ---
Providers - Providers Date of Admission: 03/27/18 21:55 Date of discharge: 03/29/18 Attending physician: LELIA HUNT 03/27/18 Consult to Physician [CONS] Routine Comment: LEFT CONSULT AT EXT [id number] Consulting Provider: NOHEMI LOERA Physician Instructions: Reason For Exam: possible cva 03/27/18 21:55 Occupational Therapy Evaluate and Treat [CONS] Routine Comment: Reason For Exam: Neuro deficits Physical Therapy Evaluation and Treat [CONS] Routine Comment: Reason For Exam: Neuro deficits Primary care physician: GHOST WRITER Hospitalization Condition: Stable Hospital course: Patient is a 47 yo woman who is homeless by report with a history of hypertension who presented to ED with ams, confusion, slurred speech and left leg/side weakness. She was found to have blood glucose of 40 and given dextrose. CTA neck IMPRESSION: Carotid arteries and vertebral arteries appear widely patent without occlusion, significant stenosis or dissection. CTA head IMPRESSION: The anterior and the posterior circulation are intact. No acute or focal abnormalities are identified CT brain wo contrast IMPRESSION: Negative CT of the head. No acute intracranial process noted. -Acute metabolic encephalopathy due to hypoglycemia: add dextrose to ivf -Hypoglycemia, no history of dm, i don't know if she took insulin: check a1c, and accucheck -Dyslipidemia: treat with statin -Hypertension by history, pt vague on home medications, I asked if she was depressed and she denies; she also denies SI: low salt diet -Hyperglycemia, ?new Dm: check a1c, 5.4 -Suspected malnutrition, albumin not checked, bmi 24 but she is not eating leading to dehydration and the above. She has been treated with IV fluids and cap refill is less than 2 seconds. new issue is low blood pressure, she is not really eating much. will treat with ivf. mri pending, if mri brain negative for stroke and if sbp is above 90 then d /c to care home I asked if she was depressed and she denies; she also denies SI. I asked, "what is your last name" she said, "Lopes". When i asked her about the name Ray, she bowed her head and said "long story" When I started asking about family, she stop responding and looked to the floor. Disposition: - TO HOME OR SELFCARE Time spent for discharge: 35 minutes Core Measure Documentation - Palliative Care Palliative Care/ Comfort Measures: Not Applicable - Core Measures Any of the following diagnoses?: none - VTE Discharge Requirements Deep Vein Thrombosis/Pulmonary Embolism Present on Admission: No Has pt received <5 days of overlap therapy or INR<2.0: No Anticoagulant overlap therapy prescribed at discharge: No Contraindication No Overlap Therapy order at DC: Not Indicated Exam - Physical Exam Narrative exam: GEN: WDWN, NAD, Awake, mumbles orientated x 3 HEENT: NCAT, EOMI, PERRL, OP Clear NECK: supple, no adenopathy, no thyromegaly, no JVD CVS/HEART: RRR, normal S1S2, pulses present bilaterally CHEST/LUNGS: CTA B, Symmetrical chest expansion, good air entry bilaterally GI/Abdomen: soft, NTND, good bowel sounds, no guarding or rebound /Bladder: no suprapubic tenderness, no CVA or paraspinal tenderness EXT/Skin: no c/c/e, no obvious rash MSK: from x 4 ext Neuro: CN 2-12 grossly intact, gollow some commands Psych: calm - Constitutional Vitals: Temp Pulse Resp BP Pulse Ox 98.2 F 65 18 95/54 97 03/29/18 04:43 03/29/18 09:10 03/29/18 04:43 03/29/18 09:10 03/29/18 08:15 Plan Activity: fall precautions, other (no strenous activity until cleared by pcp) Diet: regular Follow up with: PRIMARY CARE, [Primary Care Provider] - 3-5 Days Prescriptions: Pravastatin [Pravachol] 20 mg PO QHS #30 tablet Aspirin [Aspirin TAB] 325 mg PO QDAY #30 tablet
--- NOTE | 2018-03-29 20:49 | Magnetic Resonance Report ---
FINAL REPORT EXAM: MR BRAIN WO CON HISTORY: stroke TECHNIQUE: Multiplanar multisequence brain MR imaging without IV contrast. many repeats pt would not hold still BA: 03/29/2018 PRIORS: Head CT and CTA 03/27/2018 FINDINGS: Patient motion artifact degrades image quality and limits the examination. The included air filled sinuses contain no acute fluid level. The brain is without mass, mass effect, hemorrhage, or acute infarct. There is no midline shift or brain edema. There are no areas of brain restricted diffusion to suggest an acute ischemic infarct. The ventricles and sulci are age-appropriate. IMPRESSION: No acute CVA or brain mass
[2018-03-29] MEDS: PRAVACHOL PO SCH (22:41)
[2018-03-30] MEDS: NACL 0.9% 1000 ML 1,000 ML IV SCH (06:24)
[2018-03-30] MEDS: HumaLOG SUB-Q SCH ×3 (08:46→18:02)
[2018-03-30] MEDS: ASPIRIN PO SCH (12:17)
[2018-03-30] MEDS: LOVENOX SUB-Q SCH (12:17)
--- NOTE | 2018-03-30 12:44 | Progress Note ---
Assessment and Plan Assessment and plan: Patient is a 47 yo woman who is homeless by report with a history of hypertension who presented to ED with ams, confusion, slurred speech and left leg/side weakness. She was found to have blood glucose of 40 and given dextrose. CTA neck IMPRESSION: Carotid arteries and vertebral arteries appear widely patent without occlusion, significant stenosis or dissection. CTA head IMPRESSION: The anterior and the posterior circulation are intact. No acute or focal abnormalities are identified CT brain wo contrast IMPRESSION: Negative CT of the head. No acute intracranial process noted. -Acute metabolic encephalopathy due to hypoglycemia: add dextrose to ivf -Hypoglycemia, no history of dm, i don't know if she took insulin: check a1c, and accucheck -Dyslipidemia: treat with statin -Hypertension: low salt diet -Hyperglycemia, ?new Dm: check a1c, 5.4 new issue is low blood pressure, she is not really eating much. will treat with ivf. mri pending, if mri brain negative for stroke and if sbp is above 90 then d /c to assisted mri brain negative patient doesn't want to participate. d/c to assisted. History Interval history: Patient was seen and examined. Follow-up on current diagnosis of AMS. Overnight bp was slightly low and she was given IV fluids. Patient denies any chest pain, shortness breath, nausea/vomiting or severe headaches. Imaging, nursing note, chart, labs and old chart reviewed. Discussed with patient. She is not cooperative. Hospitalist Physical - Physical exam Narrative exam: GEN: WDWN, NAD, Awake, mumbles orientated x 3 HEENT: NCAT, EOMI, PERRL, OP Clear NECK: supple, no adenopathy, no thyromegaly, no JVD CVS/HEART: RRR, normal S1S2, pulses present bilaterally CHEST/LUNGS: CTA B, Symmetrical chest expansion, good air entry bilaterally GI/Abdomen: soft, NTND, good bowel sounds, no guarding or rebound /Bladder: no suprapubic tenderness, no CVA or paraspinal tenderness EXT/Skin: no c/c/e, no obvious rash MSK: from x 4 ext Neuro: CN 2-12 grossly intact, gollow some commands Psych: calm - Constitutional Vitals: Temp Pulse Resp BP Pulse Ox 98.0 F 70 20 111/67 97 03/30/18 08:27 03/30/18 08:27 03/30/18 08:27 03/30/18 08:27 03/30/18 08:27 Results - Labs CBC & Chem 7: 03/29/18 03:38 03/29/18 03:38 Labs: Laboratory Last Values WBC 4.1 K/mm3 (4.5-11.0) L 03/29/18 03:38 RBC 3.90 M/mm3 (3.65-5.03) 03/29/18 03:38 Hgb 11.2 gm/dl (10.1-14.3) 03/29/18 03:38 Hct 34.6 % (30.3-42.9) 03/29/18 03:38 MCV 89 fl (79-97) 03/29/18 03:38 MCH 29 pg (28-32) 03/29/18 03:38 MCHC 33 % (30-34) 03/29/18 03:38 RDW 17.7 % (13.2-15.2) H 03/29/18 03:38 Plt Count 346 K/mm3 (140-440) 03/29/18 03:38 Lymph % (Auto) 22.4 % (13.4-35.0) 03/27/18 16:12 [place] % (Auto) 10.8 % (0.0-7.3) H 03/27/18 16:12 Eos % (Auto) 0.7 % (0.0-4.3) 03/27/18 16:12 Baso % (Auto) 0.9 % (0.0-1.8) 03/27/18 16:12 Lymph # 1.0 K/mm3 (1.2-5.4) L 03/27/18 16:12 [place] # 0.5 K/mm3 (0.0-0.8) 03/27/18 16:12 Eos # 0.0 K/mm3 (0.0-0.4) 03/27/18 16:12 Baso # 0.0 K/mm3 (0.0-0.1) 03/27/18 16:12 Seg Neutrophils % 65.2 % (40.0-70.0) 03/27/18 16:12 Seg Neutrophils # 2.8 K/mm3 (1.8-7.7) 03/27/18 16:12 PT 14.5 Sec. (12.2-14.9) 03/27/18 16:12 INR 1.07 (0.87-1.13) 03/27/18 16:12 APTT 30.4 Sec. (24.2-36.6) 03/27/18 16:12 Thrombin Time 16.8 Sec. (15.1-19.6) 03/27/18 16:12 Sodium 139 mmol/L (137-145) 03/29/18 03:38 Potassium 3.9 mmol/L (3.6-5.0) 03/29/18 03:38 Chloride 101.3 mmol/L (98-107) 03/29/18 03:38 Carbon Dioxide 26 mmol/L (22-30) 03/29/18 03:38 Anion Gap 16 mmol/L 03/29/18 03:38 BUN 15 mg/dL (7-17) 03/29/18 03:38 Creatinine 0.9 mg/dL (0.7-1.2) 03/29/18 03:38 Estimated GFR > 60 ml/min 03/29/18 03:38 BUN/Creatinine Ratio 17 % 03/29/18 03:38 Glucose 75 mg/dL (65-100) 03/29/18 03:38 POC Glucose 123 (70-105) H 03/30/18 11:46 Hemoglobin A1c 5.4 % (4-6) 03/28/18 12:35 Calcium 8.4 mg/dL (8.4-10.2) 03/29/18 03:38 Total Creatine Kinase 248 units/L (30-135) H 03/28/18 04:55 CK-MB (CK-2) 3.8 ng/mL (0.0-4.0) 03/28/18 04:55 CK-MB (CK-2) Rel Index 1.5 (0-4) 03/28/18 04:55 Troponin T < 0.010 ng/mL (0.00-0.029) 03/28/18 04:55 Triglycerides 39 mg/dL (2-149) 03/28/18 04:55 Cholesterol 185 mg/dL (50-199) 03/28/18 04:55 LDL Cholesterol Direct 110 mg/dL (50-130) 03/28/18 04:55 HDL Cholesterol 79 mg/dL (40-59) H 03/28/18 04:55 Cholesterol/HDL Ratio 2.34 % 03/28/18 04:55
[2018-03-30] MEDS: SODIUM CHLORIDE FLUSH SYRINGE 10 ML IV PRN (21:39)
[2018-03-30] MEDS: PRAVACHOL PO SCH (21:39)
[2018-03-31] MEDS: HumaLOG SUB-Q SCH ×5 (00:03→23:19)
[2018-03-31] MEDS: ASPIRIN PO SCH (09:49)
[2018-03-31] MEDS: LOVENOX SUB-Q SCH (09:49)
--- NOTE | 2018-03-31 15:04 | Progress Note ---
Assessment and Plan Assessment and plan: Patient is a 47 yo woman who is homeless by report with a history of hypertension who presented to ED with ams, confusion, slurred speech and left leg/side weakness. She was found to have blood glucose of 40 and given dextrose. CTA neck IMPRESSION: Carotid arteries and vertebral arteries appear widely patent without occlusion, significant stenosis or dissection. CTA head IMPRESSION: The anterior and the posterior circulation are intact. No acute or focal abnormalities are identified CT brain wo contrast IMPRESSION: Negative CT of the head. No acute intracranial process noted. -Acute metabolic encephalopathy due to hypoglycemia: add dextrose to ivf -Hypoglycemia, no history of dm, i don't know if she took insulin: check a1c, and accucheck -Dyslipidemia: treat with statin -Hypertension: low salt diet -Hyperglycemia, ?new Dm: check a1c, 5.4 new issue is low blood pressure, she is not really eating much. will treat with ivf. mri pending, if mri brain negative for stroke and if sbp is above 90 then d /c to [facility] mri brain negative patient doesn't want to participate. I helped PT today and she reluctantly took 2 steps d/c to [facility]. History Interval history: Patient was seen and examined. Follow-up on current diagnosis of AMS. Overnight bp was slightly low and she was given IV fluids. Patient denies any chest pain, shortness breath, nausea/vomiting or severe headaches. Imaging, nursing note, chart, labs and old chart reviewed. Discussed with patient. She is not cooperative. Hospitalist Physical - Physical exam Narrative exam: GEN: WDWN, NAD, Awake, mumbles orientated x 3 HEENT: NCAT, EOMI, PERRL, OP Clear NECK: supple, no adenopathy, no thyromegaly, no JVD CVS/HEART: RRR, normal S1S2, pulses present bilaterally CHEST/LUNGS: CTA B, Symmetrical chest expansion, good air entry bilaterally GI/Abdomen: soft, NTND, good bowel sounds, no guarding or rebound /Bladder: no suprapubic tenderness, no CVA or paraspinal tenderness EXT/Skin: no c/c/e, no obvious rash MSK: from x 4 ext Neuro: CN 2-12 grossly intact, gollow some commands Psych: calm - Constitutional Vitals: Temp Pulse Resp BP Pulse Ox 98.5 F 56 L 20 105/64 100 03/31/18 08:07 05/27/18 08:07 03/31/18 08:07 03/31/18 08:07 03/31/18 08:07 Results - Labs CBC & Chem 7: 03/29/18 03:38 03/29/18 03:38 Labs: Laboratory Last Values WBC 4.1 K/mm3 (4.5-11.0) L 03/29/18 03:38 RBC 3.90 M/mm3 (3.65-5.03) 03/29/18 03:38 Hgb 11.2 gm/dl (10.1-14.3) 03/29/18 03:38 Hct 34.6 % (30.3-42.9) 03/29/18 03:38 MCV 89 fl (79-97) 03/29/18 03:38 MCH 29 pg (28-32) 03/29/18 03:38 MCHC 33 % (30-34) 03/29/18 03:38 RDW 17.7 % (13.2-15.2) H 03/29/18 03:38 Plt Count 346 K/mm3 (140-440) 03/29/18 03:38 Lymph % (Auto) 22.4 % (13.4-35.0) 03/27/18 16:12 [place] % (Auto) 10.8 % (0.0-7.3) H 03/27/18 16:12 Eos % (Auto) 0.7 % (0.0-4.3) 03/27/18 16:12 Baso % (Auto) 0.9 % (0.0-1.8) 03/27/18 16:12 Lymph # 1.0 K/mm3 (1.2-5.4) L 03/27/18 16:12 [place] # 0.5 K/mm3 (0.0-0.8) 03/27/18 16:12 Eos # 0.0 K/mm3 (0.0-0.4) 03/27/18 16:12 Baso # 0.0 K/mm3 (0.0-0.1) 03/27/18 16:12 Seg Neutrophils % 65.2 % (40.0-70.0) 03/27/18 16:12 Seg Neutrophils # 2.8 K/mm3 (1.8-7.7) 03/27/18 16:12 PT 14.5 Sec. (12.2-14.9) 03/27/18 16:12 INR 1.07 (0.87-1.13) 03/27/18 16:12 APTT 30.4 Sec. (24.2-36.6) 03/27/18 16:12 Thrombin Time 16.8 Sec. (15.1-19.6) 03/27/18 16:12 Sodium 139 mmol/L (137-145) 03/29/18 03:38 Potassium 3.9 mmol/L (3.6-5.0) 03/29/18 03:38 Chloride 101.3 mmol/L (98-107) 03/29/18 03:38 Carbon Dioxide 26 mmol/L (22-30) 03/29/18 03:38 Anion Gap 16 mmol/L 03/29/18 03:38 BUN 15 mg/dL (7-17) 03/29/18 03:38 Creatinine 0.9 mg/dL (0.7-1.2) 03/29/18 03:38 Estimated GFR > 60 ml/min 03/29/18 03:38 BUN/Creatinine Ratio 17 % 03/29/18 03:38 Glucose 75 mg/dL (65-100) 03/29/18 03:38 POC Glucose 75 (70-105) 03/31/18 05:57 Hemoglobin A1c 5.4 % (4-6) 03/28/18 12:35 Calcium 8.4 mg/dL (8.4-10.2) 03/29/18 03:38 Total Creatine Kinase 248 units/L (30-135) H 03/28/18 04:55 CK-MB (CK-2) 3.8 ng/mL (0.0-4.0) 03/28/18 04:55 CK-MB (CK-2) Rel Index 1.5 (0-4) 03/28/18 04:55 Troponin T < 0.010 ng/mL (0.00-0.029) 03/28/18 04:55 Triglycerides 39 mg/dL (2-149) 03/28/18 04:55 Cholesterol 185 mg/dL (50-199) 03/28/18 04:55 LDL Cholesterol Direct 110 mg/dL (50-130) 03/28/18 04:55 HDL Cholesterol 79 mg/dL (40-59) H 03/28/18 04:55 Cholesterol/HDL Ratio 2.34 % 03/28/18 04:55
[2018-03-31] MEDS: PRAVACHOL PO SCH (21:27)
[2018-03-31] MEDS: SODIUM CHLORIDE FLUSH SYRINGE 10 ML IV PRN (21:29)
[2018-04-01] MEDS: HumaLOG SUB-Q SCH ×4 (07:30→23:03)
[2018-04-01] MEDS: LOVENOX SUB-Q SCH (10:46)
[2018-04-01] MEDS: ASPIRIN PO SCH (10:46)
--- NOTE | 2018-04-01 12:23 | Progress Note ---
Assessment and Plan Assessment and plan: Patient is a 47 yo woman who is homeless by report with a history of hypertension who presented to ED with ams, confusion, slurred speech and left leg/side weakness. She was found to have blood glucose of 40 and given dextrose. CTA neck IMPRESSION: Carotid arteries and vertebral arteries appear widely patent without occlusion, significant stenosis or dissection. CTA head IMPRESSION: The anterior and the posterior circulation are intact. No acute or focal abnormalities are identified CT brain wo contrast IMPRESSION: Negative CT of the head. No acute intracranial process noted. -Acute metabolic encephalopathy due to hypoglycemia: add dextrose to ivf -Hypoglycemia, no history of dm, i don't know if she took insulin: check a1c, and accucheck -Dyslipidemia: treat with statin -Hypertension: low salt diet -Hyperglycemia, ?new Dm: check a1c, 5.4 new issue is low blood pressure, she is not really eating much. will treat with ivf. mri pending, if mri brain negative for stroke and if sbp is above 90 then d /c to nursing home mri brain negative patient doesn't want to participate. I helped PT today and she reluctantly took 2 steps d/c to nursing home. consulted psych and they did not see as of yet History Interval history: Patient was seen and examined. Follow-up on current diagnosis of AMS. Overnight bp was slightly low and she was given IV fluids. Patient denies any chest pain, shortness breath, nausea/vomiting or severe headaches. Imaging, nursing note, chart, labs and old chart reviewed. Discussed with patient. She is not cooperative. Hospitalist Physical - Physical exam Narrative exam: GEN: WDWN, NAD, Awake, Alert, Orientated HEENT: NCAT, EOMI, PERRL, OP Clear NECK: supple, no adenopathy, no thyromegaly, no JVD CVS/HEART: RRR, normal S1S2, pulses present bilaterally CHEST/LUNGS: CTA B, Symmetrical chest expansion, good air entry bilaterally GI/Abdomen: soft, NTND, good bowel sounds, no guarding or rebound /Bladder: no suprapubic tenderness, no CVA or paraspinal tenderness EXT/Skin: no c/c/e, no obvious rash MSK: FROM x 4 Neuro: CN 2-12 grossly intact, no new focal deficits, she doesn't cooperate with exam, doesnt follow all commands Psych: depressed - Constitutional Vitals: Temp Pulse Resp BP Pulse Ox 98.4 F 51 L 16 104/68 98 04/01/18 07:26 04/01/18 07:26 04/01/18 07:26 04/01/18 07:26 04/01/18 07:26 Results - Labs CBC & Chem 7: 03/29/18 03:38 03/29/18 03:38 Labs: Laboratory Last Values WBC 4.1 K/mm3 (4.5-11.0) L 03/29/18 03:38 RBC 3.90 M/mm3 (3.65-5.03) 03/29/18 03:38 Hgb 11.2 gm/dl (10.1-14.3) 03/29/18 03:38 Hct 34.6 % (30.3-42.9) 03/29/18 03:38 MCV 89 fl (79-97) 03/29/18 03:38 MCH 29 pg (28-32) 03/29/18 03:38 MCHC 33 % (30-34) 03/29/18 03:38 RDW 17.7 % (13.2-15.2) H 03/29/18 03:38 Plt Count 346 K/mm3 (140-440) 03/29/18 03:38 Lymph % (Auto) 22.4 % (13.4-35.0) 03/27/18 16:12 [place] % (Auto) 10.8 % (0.0-7.3) H 03/27/18 16:12 Eos % (Auto) 0.7 % (0.0-4.3) 03/27/18 16:12 Baso % (Auto) 0.9 % (0.0-1.8) 03/27/18 16:12 Lymph # 1.0 K/mm3 (1.2-5.4) L 03/27/18 16:12 [place] # 0.5 K/mm3 (0.0-0.8) 03/27/18 16:12 Eos # 0.0 K/mm3 (0.0-0.4) 03/27/18 16:12 Baso # 0.0 K/mm3 (0.0-0.1) 03/27/18 16:12 Seg Neutrophils % 65.2 % (40.0-70.0) 03/27/18 16:12 Seg Neutrophils # 2.8 K/mm3 (1.8-7.7) 03/27/18 16:12 PT 14.5 Sec. (12.2-14.9) 03/27/18 16:12 INR 1.07 (0.87-1.13) 03/27/18 16:12 APTT 30.4 Sec. (24.2-36.6) 03/27/18 16:12 Thrombin Time 16.8 Sec. (15.1-19.6) 03/27/18 16:12 Sodium 139 mmol/L (137-145) 03/29/18 03:38 Potassium 3.9 mmol/L (3.6-5.0) 03/29/18 03:38 Chloride 101.3 mmol/L (98-107) 03/29/18 03:38 Carbon Dioxide 26 mmol/L (22-30) 03/29/18 03:38 Anion Gap 16 mmol/L 03/29/18 03:38 BUN 15 mg/dL (7-17) 03/29/18 03:38 Creatinine 0.9 mg/dL (0.7-1.2) 03/29/18 03:38 Estimated GFR > 60 ml/min 03/29/18 03:38 BUN/Creatinine Ratio 17 % 03/29/18 03:38 Glucose 75 mg/dL (65-100) 03/29/18 03:38 POC Glucose 88 (70-105) 04/01/18 11:53 Hemoglobin A1c 5.4 % (4-6) 03/28/18 12:35 Calcium 8.4 mg/dL (8.4-10.2) 03/29/18 03:38 Total Creatine Kinase 248 units/L (30-135) H 03/28/18 04:55 CK-MB (CK-2) 3.8 ng/mL (0.0-4.0) 03/28/18 04:55 CK-MB (CK-2) Rel Index 1.5 (0-4) 03/28/18 04:55 Troponin T < 0.010 ng/mL (0.00-0.029) 03/28/18 04:55 Triglycerides 39 mg/dL (2-149) 03/28/18 04:55 Cholesterol 185 mg/dL (50-199) 03/28/18 04:55 LDL Cholesterol Direct 110 mg/dL (50-130) 03/28/18 04:55 HDL Cholesterol 79 mg/dL (40-59) H 03/28/18 04:55 Cholesterol/HDL Ratio 2.34 % 03/28/18 04:55
[2018-04-01] MEDS: TYLENOL PO PRN (19:26)
[2018-04-01] MEDS: PRAVACHOL PO SCH (21:38)
[2018-04-02] MEDS: HumaLOG SUB-Q SCH ×4 (08:14→21:43)
[2018-04-02] MEDS: ASPIRIN PO SCH (10:09)
[2018-04-02] MEDS: LOVENOX SUB-Q SCH (10:10)
--- NOTE | 2018-04-02 11:34 | Progress Note ---
Assessment and Plan Assessment and plan: Patient is a 47 yo woman who is homeless by report with a history of hypertension who presented to ED with ams, confusion, slurred speech and left leg/side weakness. She was found to have blood glucose of 40 and given dextrose. CTA neck IMPRESSION: Carotid arteries and vertebral arteries appear widely patent without occlusion, significant stenosis or dissection. CTA head IMPRESSION: The anterior and the posterior circulation are intact. No acute or focal abnormalities are identified CT brain wo contrast IMPRESSION: Negative CT of the head. No acute intracranial process noted. -Acute metabolic encephalopathy due to hypoglycemia: add dextrose to ivf -Hypoglycemia, no history of dm, i don't know if she took insulin: check a1c, and accucheck -Dyslipidemia: treat with statin -Hypertension: low salt diet -Hyperglycemia, ?new Dm: check a1c, 5.4 new issue is low blood pressure, she is not really eating much. will treat with ivf. mri pending, if mri brain negative for stroke and if sbp is above 90 then d /c to longterm mri brain negative patient doesn't want to participate. I helped PT today and she reluctantly took 2 steps d/c to longterm. consulted psych and they did not see as of yet d/w case management, who will investigate why psych hasn't seen. History Interval history: Patient was seen and examined. Follow-up on current diagnosis of AMS. Overnight bp was slightly low and she was given IV fluids. Patient denies any chest pain, shortness breath, nausea/vomiting or severe headaches. Imaging, nursing note, chart, labs and old chart reviewed. Discussed with patient. She is not cooperative. Hospitalist Physical - Physical exam Narrative exam: GEN: WDWN, NAD, Awake, Alert, Orientated HEENT: NCAT, EOMI, PERRL, OP Clear NECK: supple, no adenopathy, no thyromegaly, no JVD CVS/HEART: RRR, normal S1S2, pulses present bilaterally CHEST/LUNGS: CTA B, Symmetrical chest expansion, good air entry bilaterally GI/Abdomen: soft, NTND, good bowel sounds, no guarding or rebound /Bladder: no suprapubic tenderness, no CVA or paraspinal tenderness EXT/Skin: no c/c/e, no obvious rash MSK: FROM x 4 Neuro: CN 2-12 grossly intact, no new focal deficits, she doesn't cooperate with exam, doesnt follow all commands Psych: depressed - Constitutional Vitals: Temp Pulse Resp BP Pulse Ox 98.5 F 63 20 102/65 98 04/02/18 07:31 04/02/18 07:31 04/02/18 07:31 04/02/18 07:31 04/02/18 07:31 Results - Labs CBC & Chem 7: 03/29/18 03:38 03/29/18 03:38 Labs: Laboratory Last Values WBC 4.1 K/mm3 (4.5-11.0) L 03/29/18 03:38 RBC 3.90 M/mm3 (3.65-5.03) 03/29/18 03:38 Hgb 11.2 gm/dl (10.1-14.3) 03/29/18 03:38 Hct 34.6 % (30.3-42.9) 03/29/18 03:38 MCV 89 fl (79-97) 03/29/18 03:38 MCH 29 pg (28-32) 03/29/18 03:38 MCHC 33 % (30-34) 03/29/18 03:38 RDW 17.7 % (13.2-15.2) H 03/29/18 03:38 Plt Count 346 K/mm3 (140-440) 03/29/18 03:38 Lymph % (Auto) 22.4 % (13.4-35.0) 03/27/18 16:12 [place] % (Auto) 10.8 % (0.0-7.3) H 03/27/18 16:12 Eos % (Auto) 0.7 % (0.0-4.3) 03/27/18 16:12 Baso % (Auto) 0.9 % (0.0-1.8) 03/27/18 16:12 Lymph # 1.0 K/mm3 (1.2-5.4) L 03/27/18 16:12 [place] # 0.5 K/mm3 (0.0-0.8) 03/27/18 16:12 Eos # 0.0 K/mm3 (0.0-0.4) 03/27/18 16:12 Baso # 0.0 K/mm3 (0.0-0.1) 03/27/18 16:12 Seg Neutrophils % 65.2 % (40.0-70.0) 03/27/18 16:12 Seg Neutrophils # 2.8 K/mm3 (1.8-7.7) 03/27/18 16:12 PT 14.5 Sec. (12.2-14.9) 03/27/18 16:12 INR 1.07 (0.87-1.13) 03/27/18 16:12 APTT 30.4 Sec. (24.2-36.6) 03/27/18 16:12 Thrombin Time 16.8 Sec. (15.1-19.6) 03/27/18 16:12 Sodium 139 mmol/L (137-145) 03/29/18 03:38 Potassium 3.9 mmol/L (3.6-5.0) 03/29/18 03:38 Chloride 101.3 mmol/L (98-107) 03/29/18 03:38 Carbon Dioxide 26 mmol/L (22-30) 03/29/18 03:38 Anion Gap 16 mmol/L 03/29/18 03:38 BUN 15 mg/dL (7-17) 03/29/18 03:38 Creatinine 0.9 mg/dL (0.7-1.2) 03/29/18 03:38 Estimated GFR > 60 ml/min 03/29/18 03:38 BUN/Creatinine Ratio 17 % 03/29/18 03:38 Glucose 75 mg/dL (65-100) 03/29/18 03:38 POC Glucose 76 (70-105) 04/02/18 06:37 Hemoglobin A1c 5.4 % (4-6) 03/28/18 12:35 Calcium 8.4 mg/dL (8.4-10.2) 03/29/18 03:38 Total Creatine Kinase 248 units/L (30-135) H 03/28/18 04:55 CK-MB (CK-2) 3.8 ng/mL (0.0-4.0) 03/28/18 04:55 CK-MB (CK-2) Rel Index 1.5 (0-4) 03/28/18 04:55 Troponin T < 0.010 ng/mL (0.00-0.029) 03/28/18 04:55 Triglycerides 39 mg/dL (2-149) 03/28/18 04:55 Cholesterol 185 mg/dL (50-199) 03/28/18 04:55 LDL Cholesterol Direct 110 mg/dL (50-130) 03/28/18 04:55 HDL Cholesterol 79 mg/dL (40-59) H 03/28/18 04:55 Cholesterol/HDL Ratio 2.34 % 03/28/18 04:55
[2018-04-02] MEDS: PRAVACHOL PO SCH (21:48)
[2018-04-03] MEDS: HumaLOG SUB-Q SCH ×4 (07:30→22:13)
[2018-04-03] MEDS: ASPIRIN PO SCH (10:06)
[2018-04-03] MEDS: LOVENOX SUB-Q SCH (10:06)
[2018-04-03] MEDS: TYLENOL PO PRN (11:59)
--- NOTE | 2018-04-03 18:42 | Progress Note ---
Assessment and Plan Assessment and Plan Patient is a 47 yo woman who is homeless by report with a history of hypertension who presented to ED with ams, confusion, slurred speech and left leg/side weakness. She was found to have blood glucose of 40 and given dextrose. CTA neck IMPRESSION: Carotid arteries and vertebral arteries appear widely patent without occlusion, significant stenosis or dissection. CTA head IMPRESSION: The anterior and the posterior circulation are intact. No acute or focal abnormalities are identified CT brain wo contrast IMPRESSION: Negative CT of the head. No acute intracranial process noted. -Acute metabolic encephalopathy --resolved -Hypoglycemia, --resolved no history of DM and A1c is normal--5.4 -Dyslipidemia: treat with statin -Hypertension: low salt diet -Debility--- PT/ OT Disposition to jail tomorrow. Patient is malingering. Discussed with the case management IV fluids for now Subjective Date of service: 04/03/18 Principal diagnosis: metabolic encephalopathy Interval history: Patient is in bed alert and oriented watching TV. Patient says that she is still weak and unable to walk which I doubt because of her homeless situation. All the neuro workup has been negative until now Objective - Constitutional Vitals: Vital Signs - 12hr 04/03/18 04/03/18 04/03/18 07:49 16:08 17:12 Temperature 98.1 F 97.4 F L 98.7 F Pulse Rate 52 L 60 Respiratory 19 19 20 Rate Blood Pressure 104/63 84/44 Blood Pressure 100/56 [Right] O2 Sat by Pulse 87 Oximetry General appearance: Present: no acute distress, well-nourished - EENT Eyes: PERRL, EOM intact ENT: hearing intact, clear oral mucosa Ears: bilateral: normal - Neck Neck: supple, normal ROM - Respiratory Respiratory effort: normal Respiratory: bilateral: CTA - Breasts Breasts: normal - Cardiovascular Heart rate: 76 Rhythm: regular Heart Sounds: Present: S1 & S2. Absent: gallop, rub Extremities: no ischemia, pulses intact, No edema, normal color, Full ROM - Gastrointestinal General gastrointestinal: Present: soft, non-tender, non-distended, normal bowel sounds - Genitourinary Female genitourinary: normal - Integumentary Integumentary: clear, warm, dry - Musculoskeletal Musculoskeletal: 1, strength equal bilaterally - Neurologic Neurologic: moves all extremities - Psychiatric Psychiatric: memory intact, appropriate mood/affect, intact judgment & insight - Labs CBC & Chem 7: 03/29/18 03:38 03/29/18 03:38 Labs: Abnormal lab results 04/02/18 Range/Units 21:29 POC Glucose 134 H (70-105)
[2018-04-03] MEDS: PRAVACHOL PO SCH (21:55)
[2018-04-04 06:44] LABS: Eosinophils # (Auto) 0.1 K/mm3 (0.0-0.4); Eosinophils % (Auto) 3.6 % (0.0-4.3); Hematocrit 35.5 % (30.3-42.9); Hemoglobin 11.5 gm/dl (10.1-14.3); Lymphocytes # (Auto) 1.5 K/mm3 (1.2-5.4); Lymphocytes % (Auto) 41.9 % (13.4-35.0); Mean Corpuscular HGB Conc 32 % (30-34); Mean Corpuscular Hemoglobin 29 pg (28-32); Mean Corpuscular Volume 89 fl (79-97); Monocytes # (Auto) 0.3 K/mm3 (0.0-0.8); Monocytes % (Auto) 8.4 % (0.0-7.3); Platelet Count 332 K/mm3 (140-440); Red Blood Count 3.99 M/mm3 (3.65-5.03); Red Cell Distribution Width 17.6 % (13.2-15.2)
[2018-04-04 07:04] LABS: Alanine Aminotransferase 8 units/L (7-56); Albumin 3.5 g/dL (3.9-5); BUN/Creatinine Ratio 14; Blood Urea Nitrogen 11 mg/dL (7-17); Calcium 8.9 mg/dL (8.4-10.2); Hemolysis Index 1
[2018-04-04] MEDS: HumaLOG SUB-Q SCH ×4 (07:36→21:49)
--- NOTE | 2018-04-04 09:41 | Consultation ---
History of Present Illness - Reason for Consult Consult date: 04/04/18 Reason for consult: Mental Health Evaluation Requesting physician: LELIA HUNT - Chief Complaint Chief complaint: "I was praying" - History of Present Psychiatric Illness 47-year-old female presents to the emergency department via EMS after she was found altered and laying on the ground. Psychiatry was consulted to see patient for psychosis. Today the patient is calm and cooperative during the assessment. She stated that she was praying to the "lord " when found by hospital staff. She stated that she had not eaten much that day , but was drinking because it was hot outside. She stated that she has a estranged relationship with her family. She stated that she receive back child support monthly, but it's not enough to pay rent. She stated that she plan to get a job soon. She denies a psy hx. She denies SI/HI's, AVH's, and depression. She denies any manic episodes in the past. She denies recreational drug use and alcohol consumption (etoh). She is aware that food intake is important. The patient ate 100% of her breakfast today. Medications and Allergies Allergies Allergy/AdvReac Type Severity Reaction Status Date / Time Penicillins Allergy Swelling Verified 03/27/18 15:46 Home Medications Medication Instructions Recorded Confirmed Last Taken Type Cetirizine HCl [ZyrTEC] 10 mg PO QAM 7 Days #7 capsule 03/24/18 03/30/18 Unknown Rx Fluticasone [Flonase] 1 spray NS QDAY 14 Days #1 bottle 03/24/18 03/30/18 Unknown Rx Aspirin [Aspirin TAB] 325 mg PO QDAY #30 tablet 03/29/18 Unknown Rx Pravastatin [Pravachol] 20 mg PO QHS #30 tablet 03/29/18 Unknown Rx Active Meds: Active Medications Acetaminophen (Tylenol) 650 mg PO Q4H PRN PRN Reason: Pain, Mild (1-3) Last Admin: 04/03/18 11:59 Dose: 650 mg Aspirin (Aspirin) 325 mg PO QDAY MARIKA Last Admin: 04/03/18 10:06 Dose: 325 mg Bisacodyl (Dulcolax) 10 mg ND QDAY PRN PRN Reason: Constipation Dextrose (D50w (25gm) Syringe) 50 ml IV PRN PRN PRN Reason: Hypoglycemia Enoxaparin Sodium (Lovenox) 40 mg SUB-Q QDAY [facility] Last Admin: 04/03/18 10:06 Dose: 40 mg Dextrose/Sodium Chloride (D5ns) 1,000 mls @ 100 mls/hr IV DIRECT MARIKA Insulin Human Lispro (Humalog) 0 unit SUB-Q ACHS [facility]; Protocol Last Admin: 04/04/18 07:36 Dose: Not Given Magnesium Hydroxide (Milk Of Magnesia) 30 ml PO Q4H PRN PRN Reason: Constipation Metoclopramide HCl (Reglan) 10 mg PO Q6H PRN PRN Reason: Nausea And Vomiting Ondansetron HCl (Zofran) 4 mg IV Q8H PRN PRN Reason: N/V unrelieved by Reglan Pravastatin Sodium (Pravachol) 40 mg PO QHS [facility] Last Admin: 04/03/18 21:55 Dose: 40 mg Sodium Chloride (Sodium Chloride Flush Syringe 10 Ml) 10 ml IV PRN PRN PRN Reason: LINE FLUSH Last Admin: 03/31/18 21:29 Dose: 10 ml Past psychiatric history - Past Medical History Past Medical History: No medical history Past Surgical History: - past Psychiatric treatment and history psychiatric treatment history: Denies a psy hx and a fam psy hx. - Social History Social history: other (Homeless) Mental Status Exam - Vital signs Last Vital Signs Temp 98.1 F 04/04/18 07:27 Pulse 52 L 04/03/18 21:55 Resp 19 04/04/18 07:27 BP 100/68 04/04/18 07:27 Pulse Ox 100 04/03/18 21:55 - Exam Narrative exam: MSE: Appearance: calm, cooperative Behavior: regular eye contact Speech: regular rate and tone Mood: "okay" Affect: congruent to mood Thought Process: linear Thought Content: denies SI/HI's and AVH's Motor Activity: lying in bed Cognition: A/O x 3 Insight: appropriate Judgment: appropriate Results Result Diagrams: 04/04/18 05:57 04/04/18 05:57 Abnormal lab results 04/04/18 04/04/18 Range/Units 05:57 05:57 WBC 3.6 L (4.5-11.0) K/mm3 RDW 17.6 H (13.2-15.2) % Lymph % (Auto) 41.9 H (13.4-35.0) % [place] % (Auto) 8.4 H (0.0-7.3) % Seg Neutrophils # 1.6 L (1.8-7.7) K/mm3 Albumin 3.5 L (3.9-5) g/dL All other labs normal. Assessment and Plan Assessment and plan: Impression: No overt psychosis with this patient. Today the patient is calm and cooperative during the assessment. The patient is homeless. No UDS was collected. Recommendations/Plan: Per Case Mgmt, the patient is pending placement to a [facility]. Psychiatry sign off.
[2018-04-04] MEDS: LOVENOX SUB-Q SCH (10:04)
[2018-04-04] MEDS: ASPIRIN PO SCH (10:04)
--- NOTE | 2018-04-04 14:59 | Progress Note ---
Assessment and Plan Assessment and Plan Patient is a 47 yo woman who is homeless by report with a history of hypertension who presented to ED with ams, confusion, slurred speech and left leg/side weakness. She was found to have blood glucose of 40 and given dextrose. CTA neck IMPRESSION: Carotid arteries and vertebral arteries appear widely patent without occlusion, significant stenosis or dissection. CTA head IMPRESSION: The anterior and the posterior circulation are intact. No acute or focal abnormalities are identified CT brain wo contrast IMPRESSION: Negative CT of the head. No acute intracranial process noted. -Paraplegia -LS spine MRI ordered,Also Neuro eval -Acute metabolic encephalopathy --resolved -Hypoglycemia, --resolved no history of DM and A1c is normal--5.4 -Dyslipidemia: treat with statin -Hypertension: low salt diet -Debility--- PT/ OT Disposition to assisted tomorrow. Patient is malingering. Discussed with the case management IV fluids for now Subjective Date of service: 04/04/18 Principal diagnosis: metabolic encephalopathy Interval history: Patient in physical therapy. Wincing in pain when getting up from bed Objective - Constitutional Vitals: Vital Signs - 12hr 04/04/18 07:27 Temperature 98.1 F Respiratory 19 Rate Blood Pressure 100/68 General appearance: Present: no acute distress, well-nourished - EENT Eyes: PERRL, EOM intact ENT: hearing intact, clear oral mucosa Ears: bilateral: normal - Neck Neck: supple, normal ROM - Respiratory Respiratory effort: normal Respiratory: bilateral: CTA - Breasts Breasts: normal - Cardiovascular Rhythm: regular Heart Sounds: Present: S1 & S2. Absent: gallop, rub Extremities: pulses intact, No edema, normal color, Full ROM - Gastrointestinal General gastrointestinal: Present: soft, non-tender, non-distended, normal bowel sounds - Genitourinary Female genitourinary: normal - Integumentary Integumentary: clear, warm, dry - Musculoskeletal Musculoskeletal: strength equal bilaterally, generalized weakness, other (very weak in both legs) - Neurologic Neurologic: moves all extremities - Psychiatric Psychiatric: appropriate mood/affect, intact judgment & insight, memory intact, other (exam c/w paraplegia) - Allied health notes Allied health notes reviewed: nursing, case management - Labs CBC & Chem 7: 04/04/18 05:57 04/04/18 05:57 Labs: Abnormal lab results 04/04/18 04/04/18 Range/Units 05:57 05:57 WBC 3.6 L (4.5-11.0) K/mm3 RDW 17.6 H (13.2-15.2) % Lymph % (Auto) 41.9 H (13.4-35.0) % [place] % (Auto) 8.4 H (0.0-7.3) % Seg Neutrophils # 1.6 L (1.8-7.7) K/mm3 Albumin 3.5 L (3.9-5) g/dL
[2018-04-04] MEDS: D5NS 1,000 ML IV SCH (18:31)
[2018-04-04] MEDS: PRAVACHOL PO SCH (21:49)
[2018-04-04] MEDS: TYLENOL PO PRN (21:55)
[2018-04-05] MEDS: D5NS 1,000 ML IV SCH ×2 (04:33→17:18)
[2018-04-05 06:34] LABS: Basophils % (Auto) 0.9 % (0.0-1.8); Eosinophils # (Auto) 0.1 K/mm3 (0.0-0.4); Eosinophils % (Auto) 3.3 % (0.0-4.3); Hematocrit 34.4 % (30.3-42.9); Hemoglobin 11.6 gm/dl (10.1-14.3); Lymphocytes # (Auto) 1.5 K/mm3 (1.2-5.4); Lymphocytes % (Auto) 47.7 % (13.4-35.0); Mean Corpuscular HGB Conc 34 % (30-34); Mean Corpuscular Hemoglobin 30 pg (28-32); Mean Corpuscular Volume 89 fl (79-97); Monocytes # (Auto) 0.3 K/mm3 (0.0-0.8); Monocytes % (Auto) 9.9 % (0.0-7.3); Platelet Count 301 K/mm3 (140-440); Red Blood Count 3.89 M/mm3 (3.65-5.03); Red Cell Distribution Width 17.8 % (13.2-15.2)
[2018-04-05 06:57] LABS: Alanine Aminotransferase 7 units/L (7-56); Albumin 3.2 g/dL (3.9-5); BUN/Creatinine Ratio 16; Blood Urea Nitrogen 11 mg/dL (7-17); Calcium 8.6 mg/dL (8.4-10.2); Hemolysis Index 4
[2018-04-05] MEDS: HumaLOG SUB-Q SCH ×4 (08:07→23:17)
[2018-04-05] MEDS: ASPIRIN PO SCH (09:41)
[2018-04-05] MEDS: LOVENOX SUB-Q SCH (09:41)
--- NOTE | 2018-04-05 14:07 | Consultation ---
History of Present Illness Consult date: 04/05/18 Requesting physician: DAVID MARQUEZ Reason for Consult: weak legs Chief complaint: weak legs Past History Past Medical History: No medical history Past Surgical History: Social history: other (Homeless) Medications and Allergies Allergies Allergy/AdvReac Type Severity Reaction Status Date / Time Penicillins Allergy Swelling Verified 03/27/18 15:46 Home Medications Medication Instructions Recorded Confirmed Last Taken Type Cetirizine HCl [ZyrTEC] 10 mg PO QAM 7 Days #7 capsule 03/24/18 03/30/18 Unknown Rx Fluticasone [Flonase] 1 spray NS QDAY 14 Days #1 bottle 03/24/18 03/30/18 Unknown Rx Aspirin [Aspirin TAB] 325 mg PO QDAY #30 tablet 03/29/18 Unknown Rx Pravastatin [Pravachol] 20 mg PO QHS #30 tablet 03/29/18 Unknown Rx Active Meds: Active Medications Acetaminophen (Tylenol) 650 mg PO Q4H PRN PRN Reason: Pain, Mild (1-3) Last Admin: 04/04/18 21:55 Dose: 650 mg Aspirin (Aspirin) 325 mg PO QDAY [facility] Last Admin: 04/05/18 09:41 Dose: 325 mg Bisacodyl (Dulcolax) 10 mg [place] QDAY PRN PRN Reason: Constipation Dextrose (D50w (25gm) Syringe) 50 ml IV PRN PRN PRN Reason: Hypoglycemia Enoxaparin Sodium (Lovenox) 40 mg SUB-Q QDAY [facility] Last Admin: 04/05/18 09:41 Dose: 40 mg Dextrose/Sodium Chloride (D5ns) 1,000 mls @ 100 mls/hr IV DIRECT [facility] Last Admin: 04/05/18 04:33 Dose: 100 mls/hr Insulin Human Lispro (Humalog) 0 unit SUB-Q ACHS [facility]; Protocol Last Admin: 04/05/18 08:07 Dose: Not Given Magnesium Hydroxide (Milk Of Magnesia) 30 ml PO Q4H PRN PRN Reason: Constipation Metoclopramide HCl (Reglan) 10 mg PO Q6H PRN PRN Reason: Nausea And Vomiting Ondansetron HCl (Zofran) 4 mg IV Q8H PRN PRN Reason: N/V unrelieved by Reglan Pravastatin Sodium (Pravachol) 40 mg PO QHS [facility] Last Admin: 04/04/18 21:49 Dose: 40 mg Sodium Chloride (Sodium Chloride Flush Syringe 10 Ml) 10 ml IV PRN PRN PRN Reason: LINE FLUSH Last Admin: 03/31/18 21:29 Dose: 10 ml Physical Examination - Vital Signs Vital Signs: Vital Signs Temp Pulse Resp BP Pulse Ox 98.2 F 87 18 98/71 97 03/27/18 15:46 03/27/18 15:46 03/27/18 15:46 03/27/18 15:46 03/27/18 15:46 Results - Laboratory Findings CBC and BMP: 04/05/18 05:59 04/05/18 05:59 Abnormal Lab Findings: Abnormal Labs 03/27/18 03/27/18 03/27/18 15:58 16:12 16:12 WBC 4.3 L MCV 103 H MCHC 29 L RDW 19.4 H Lymph % (Auto) Luce % (Auto) 10.8 H Lymph # 1.0 L Seg Neutrophils % Seg Neutrophils # Sodium 132 L Potassium 5.7 H Chloride 95.4 L Glucose 1138 H* POC Glucose 40 L Total Creatine Kinase Albumin HDL Cholesterol 03/27/18 03/27/18 03/27/18 16:20 17:22 17:30 WBC MCV MCHC RDW Lymph % (Auto) Luce % (Auto) Lymph # Seg Neutrophils % Seg Neutrophils # Sodium 133 L Potassium Chloride 97.9 L Glucose 144 H POC Glucose 185 H 164 H Total Creatine Kinase Albumin HDL Cholesterol 03/27/18 03/28/18 03/28/18 Unknown 04:55 04:55 WBC MCV MCHC RDW Lymph % (Auto) Luce % (Auto) Lymph # Seg Neutrophils % Seg Neutrophils # Sodium Potassium Chloride Glucose POC Glucose Total Creatine Kinase 207 H 248 H Albumin HDL Cholesterol 79 H 03/28/18 03/28/18 03/29/18 16:59 21:52 02:17 WBC MCV MCHC RDW Lymph % (Auto) Luce % (Auto) Lymph # Seg Neutrophils % Seg Neutrophils # Sodium Potassium Chloride Glucose POC Glucose 114 H 119 H 123 H Total Creatine Kinase Albumin HDL Cholesterol 03/29/18 03/29/18 03/30/18 03:38 21:43 11:46 WBC 4.1 L MCV MCHC RDW 17.7 H Lymph % (Auto) Luce % (Auto) Lymph # Seg Neutrophils % Seg Neutrophils # Sodium Potassium Chloride Glucose POC Glucose 121 H 123 H Total Creatine Kinase Albumin HDL Cholesterol 03/30/18 04/01/18 04/01/18 21:37 16:48 22:58 WBC MCV MCHC RDW Lymph % (Auto) Luce % (Auto) Lymph # Seg Neutrophils % Seg Neutrophils # Sodium Potassium Chloride Glucose POC Glucose 117 H 128 H 115 H Total Creatine Kinase Albumin HDL Cholesterol 04/02/18 04/04/18 04/04/18 21:29 05:57 05:57 WBC 3.6 L MCV MCHC RDW 17.6 H Lymph % (Auto) 41.9 H Luce % (Auto) 8.4 H Lymph # Seg Neutrophils % Seg Neutrophils # 1.6 L Sodium Potassium Chloride Glucose POC Glucose 134 H Total Creatine Kinase Albumin 3.5 L HDL Cholesterol 04/04/18 04/05/18 04/05/18 17:31 05:59 05:59 WBC 3.2 L MCV MCHC RDW 17.8 H Lymph % (Auto) 47.7 H Luce % (Auto) 9.9 H Lymph # Seg Neutrophils % 38.2 L Seg Neutrophils # 1.2 L Sodium Potassium Chloride Glucose POC Glucose 159 H Total Creatine Kinase Albumin 3.2 L HDL Cholesterol
--- NOTE | 2018-04-05 16:43 | Progress Note ---
Assessment and Plan Assessment and Plan Patient is a 47 yo woman who is homeless by report with a history of hypertension who presented to ED with ams, confusion, slurred speech and left leg/side weakness. She was found to have blood glucose of 40 and given dextrose. -Paraplegia -LS spine MRI ordered,Also Neuro eval Appreciated---W/u pending including LS spine MRI T spine MRI -Acute metabolic encephalopathy --resolved -Hypoglycemia, --resolved no history of DM and A1c is normal--5.4 -Dyslipidemia: treat with statin -Hypertension: low salt diet -Debility--- PT/ OT Subjective Date of service: 04/05/18 Principal diagnosis: metabolic encephalopathy Interval history: Patient in physical therapy. Wincing in pain when getting up from bed Objective - Constitutional Vitals: Vital Signs - 12hr 04/05/18 04/05/18 06:00 08:58 Temperature 98.1 F Pulse Rate 56 L Respiratory 20 Rate Respiratory 18 Rate [ Generalized] Blood Pressure 107/63 O2 Sat by Pulse 98 Oximetry General appearance: Present: no acute distress, well-nourished - EENT Eyes: PERRL, EOM intact ENT: hearing intact, clear oral mucosa Ears: bilateral: normal - Neck Neck: supple, normal ROM - Respiratory Respiratory effort: normal Respiratory: bilateral: CTA - Breasts Breasts: normal - Cardiovascular Rhythm: regular Heart Sounds: Present: S1 & S2. Absent: gallop, rub Extremities: pulses intact, No edema, normal color, Full ROM - Gastrointestinal General gastrointestinal: Present: soft, non-tender, non-distended, normal bowel sounds - Genitourinary Female genitourinary: normal - Integumentary Integumentary: clear, warm, dry - Musculoskeletal Musculoskeletal: strength equal bilaterally, generalized weakness - Neurologic Neurologic: focal deficits, other (Paraplegia T2 level??) - Psychiatric Psychiatric: appropriate mood/affect, intact judgment & insight, memory intact, cooperative - Labs CBC & Chem 7: 04/05/18 05:59 04/05/18 05:59 Labs: Abnormal lab results 04/04/18 04/05/18 04/05/18 Range/Units 17:31 05:59 05:59 WBC 3.2 L (4.5-11.0) K/mm3 RDW 17.8 H (13.2-15.2) % Lymph % (Auto) 47.7 H (13.4-35.0) % Price % (Auto) 9.9 H (0.0-7.3) % Seg Neutrophils % 38.2 L (40.0-70.0) % Seg Neutrophils # 1.2 L (1.8-7.7) K/mm3 POC Glucose 159 H (70-105) Albumin 3.2 L (3.9-5) g/dL
[2018-04-05] MEDS: PRAVACHOL PO SCH (23:17)
[2018-04-06] MEDS: D5NS 1,000 ML IV SCH (03:17)
[2018-04-06] MEDS: HumaLOG SUB-Q SCH ×3 (07:30→23:51)
[2018-04-06] MEDS: ASPIRIN PO SCH (10:51)
[2018-04-06] MEDS: LOVENOX SUB-Q SCH (10:51)
--- NOTE | 2018-04-06 17:07 | Progress Note ---
Assessment and Plan Assessment and Plan Patient is a 47 yo woman who is homeless by report with a history of hypertension who presented to ED with ams, confusion, slurred speech and left leg/side weakness. She was found to have blood glucose of 40 and given dextrose. -Paraplegia -LS spine MRI done-report pending,Also Neuro eval Appreciated---W/u pending including LS spine MRI T spine MRI---Reports pending -Acute metabolic encephalopathy --resolved -Hypoglycemia, --resolved no history of DM and A1c is normal--5.4 -Dyslipidemia: treat with statin -Hypertension: low salt diet -Debility--- PT/ OT Subjective Date of service: 04/06/18 Principal diagnosis: metabolic encephalopathy Interval history: Patient in physical therapy. Wincing in pain when getting up from bed Objective - Constitutional Vitals: Vital Signs - 12hr 04/06/18 04/06/18 04/06/18 08:00 08:03 16:02 Temperature 97.6 F 98.0 F Pulse Rate 57 L 62 Respiratory 20 19 19 Rate Blood Pressure 117/71 120/71 O2 Sat by Pulse 99 100 Oximetry General appearance: Present: no acute distress, well-nourished - EENT Eyes: PERRL, EOM intact ENT: hearing intact, clear oral mucosa Ears: bilateral: normal - Neck Neck: supple, normal ROM - Respiratory Respiratory effort: normal Respiratory: bilateral: CTA - Breasts Breasts: normal - Cardiovascular Heart rate: 78 Rhythm: regular Heart Sounds: Present: S1 & S2. Absent: gallop, rub Extremities: no ischemia, pulses intact, No edema, normal color, Full ROM - Gastrointestinal General gastrointestinal: Present: soft, non-tender, non-distended, normal bowel sounds - Genitourinary Female genitourinary: normal - Integumentary Integumentary: clear, warm, dry - Musculoskeletal Musculoskeletal: strength equal bilaterally, generalized weakness, other ( Bilateral lower leg weakness) - Neurologic Neurologic: moves all extremities - Psychiatric Psychiatric: memory intact, appropriate mood/affect, intact judgment & insight - Labs CBC & Chem 7: 04/05/18 05:59 04/05/18 05:59 Labs: Abnormal lab results 04/05/18 04/05/18 Range/Units 17:13 21:14 POC Glucose 113 H 144 H (70-105)
--- NOTE | 2018-04-06 17:48 | Progress Note ---
Assessment and Plan Impression: 1. Quadriparesis 2. Paresthesias Plan: 1. Ordered C and T spine MRIs today and Brain and lumbar tomorrow with dye for all but the lumbar. Previous brain MRI was negative. 2. If negative, may need CPK, aldolase, lactic acid, Myasthenia panel. 3. PT/OT to assess her too and provide strengthening and balance training. 45 min spent on this patient including extensive motor exam. Thank you for an interesting consultation on this pleasant late 40's lady. Subjective Date of service: 04/05/18 Principal diagnosis: weak arms and legs Interval history: HPI: This 47 year old left handed female was seen by neurologist Dr. Kirby here on 03/28 for possible TIA. She says she has been weak in legs more than arms since admission with numbness right hand and legs and feet. She has had bladder urgency and leakage but no fecal incontinence. Objective - Exam Narrative Exam: General appearance: well developed well nourished (no BMI since no height recorded) late 40's female in NAD, very soft spoken. Mental Status: AAO X 3, speech is clear, names pen and point of pen. Cranial Nerves: frederick full, PERRLA, no nystagmus or diplopia, no facial weakness, hears finger rub bilaterally, shoulder shrug is 5 X 2 with pain in shoulders, tongue protrudes midline. Cerebellar: finger to nose and heel to bustillos are normal. Motor Exam Upper Extremities: no drift or pronation, Denita are normal. Strength is 5 except: deltoids are 4+, biceps 5 right and 4+ left, triceps 4, wrist extensors 5- right and 5 left, finger extensors 4+, finger flexors 4+ right and 4 left, ADMs 4+ right and 4 left with questionable effort for all. Motor Exam Lower Extremities: IPs are 5-, quadriceps 4- right and 3+ left, hamstrings 3+ right and 2+ left with pain lower back on left side testing, anterior tibials 4-, gastrocnemius are 4+. Denita are normal. Monreal's sign is negative. Sensory: pinprick decreased in hands and T2 sensory level on trunk. Special Tests: Tinel's is negative at carpal and cubital tunnels and Guyon's canals. - Vital Sign Vital Signs - 12hr 04/06/18 04/06/18 04/06/18 08:00 08:03 16:02 Temperature 97.6 F 98.0 F Pulse Rate 57 L 62 Respiratory 20 19 19 Rate Blood Pressure 117/71 120/71 O2 Sat by Pulse 99 100 Oximetry - Laboratory Findings CBC and BMP: 04/05/18 05:59 04/05/18 05:59 Abnormal Lab Findings: Abnormal Labs 03/27/18 03/27/18 03/27/18 15:58 16:12 16:12 WBC 4.3 L MCV 103 H MCHC 29 L RDW 19.4 H Lymph % (Auto) Barber % (Auto) 10.8 H Lymph # 1.0 L Seg Neutrophils % Seg Neutrophils # Sodium 132 L Potassium 5.7 H Chloride 95.4 L Glucose 1138 H* POC Glucose 40 L Total Creatine Kinase Albumin HDL Cholesterol 03/27/18 03/27/18 03/27/18 16:20 17:22 17:30 WBC MCV MCHC RDW Lymph % (Auto) Barber % (Auto) Lymph # Seg Neutrophils % Seg Neutrophils # Sodium 133 L Potassium Chloride 97.9 L Glucose 144 H POC Glucose 185 H 164 H Total Creatine Kinase Albumin HDL Cholesterol 03/27/18 03/28/18 03/28/18 Unknown 04:55 04:55 WBC MCV MCHC RDW Lymph % (Auto) Barber % (Auto) Lymph # Seg Neutrophils % Seg Neutrophils # Sodium Potassium Chloride Glucose POC Glucose Total Creatine Kinase 207 H 248 H Albumin HDL Cholesterol 79 H 03/28/18 03/28/18 03/29/18 16:59 21:52 02:17 WBC MCV MCHC RDW Lymph % (Auto) Barber % (Auto) Lymph # Seg Neutrophils % Seg Neutrophils # Sodium Potassium Chloride Glucose POC Glucose 114 H 119 H 123 H Total Creatine Kinase Albumin HDL Cholesterol 03/29/18 03/29/18 03/30/18 03:38 21:43 11:46 WBC 4.1 L MCV MCHC RDW 17.7 H Lymph % (Auto) Barber % (Auto) Lymph # Seg Neutrophils % Seg Neutrophils # Sodium Potassium Chloride Glucose POC Glucose 121 H 123 H Total Creatine Kinase Albumin HDL Cholesterol 03/30/18 04/01/18 04/01/18 21:37 16:48 22:58 WBC MCV MCHC RDW Lymph % (Auto) Barber % (Auto) Lymph # Seg Neutrophils % Seg Neutrophils # Sodium Potassium Chloride Glucose POC Glucose 117 H 128 H 115 H Total Creatine Kinase Albumin HDL Cholesterol 04/02/18 04/04/18 04/04/18 21:29 05:57 05:57 WBC 3.6 L MCV MCHC RDW 17.6 H Lymph % (Auto) 41.9 H Barber % (Auto) 8.4 H Lymph # Seg Neutrophils % Seg Neutrophils # 1.6 L Sodium Potassium Chloride Glucose POC Glucose 134 H Total Creatine Kinase Albumin 3.5 L HDL Cholesterol 04/04/18 04/05/18 04/05/18 17:31 05:59 05:59 WBC 3.2 L MCV MCHC RDW 17.8 H Lymph % (Auto) 47.7 H Barber % (Auto) 9.9 H Lymph # Seg Neutrophils % 38.2 L Seg Neutrophils # 1.2 L Sodium Potassium Chloride Glucose POC Glucose 159 H Total Creatine Kinase Albumin 3.2 L HDL Cholesterol 04/05/18 04/05/18 17:13 21:14 WBC MCV MCHC RDW Lymph % (Auto) Barber % (Auto) Lymph # Seg Neutrophils % Seg Neutrophils # Sodium Potassium Chloride Glucose POC Glucose 113 H 144 H Total Creatine Kinase Albumin HDL Cholesterol
[2018-04-06] MEDS: PRAVACHOL PO SCH (22:50)
[2018-04-07] MEDS: D5NS 1,000 ML IV SCH (06:31)
[2018-04-07] MEDS: HumaLOG SUB-Q SCH ×4 (09:50→22:52)
[2018-04-07] MEDS: LOVENOX SUB-Q SCH (09:58)
[2018-04-07] MEDS: ASPIRIN PO SCH (09:58)
--- NOTE | 2018-04-07 13:21 | Magnetic Resonance Report ---
MR LUMBAR SPINE WITH AND WITHOUT CONTRAST History: Paraplegia. Technique: Multisequence, multiplanar MRI before and after IV gadolinium. Findings: There is normal height and alignment of the lumbar vertebral bodies. No evidence for compression deformity, subluxation, bone lesion or abnormal enhancement. The conus terminates at the level of L1. No abnormality. The central canal is widely patent with no stenosis or filling defect. At L4-5, there is mild disc desiccation and narrowing. A chronic appearing left paracentral annular tear is identified without associated protrusion. The remaining levels lumbar spine are within normal limits. The paraspinal soft tissues are unremarkable. IMPRESSION: Mild degenerative disc disease and chronic left paracentral annular tear at L4-5 as described. Otherwise, unremarkable MRI lumbar spine with and without contrast. No evidence for canal stenosis, herniation or nerve impingement.
--- NOTE | 2018-04-07 16:21 | Progress Note ---
Assessment and Plan Assessment and Plan Patient is a 47 yo woman who is homeless by report with a history of hypertension who presented to ED with ams, confusion, slurred speech and left leg/side weakness. She was found to have blood glucose of 40 and given dextrose. -Paraplegia -LS spine MRI --normal except for a small teat in annulus C Spine MRI pending ,Also Neuro eval Appreciated---W/u pending including LS spine MRI T spine MRI---Reports pending -Acute metabolic encephalopathy --resolved -Hypoglycemia, --resolved no history of DM and A1c is normal--5.4 -Dyslipidemia: treat with statin -Hypertension: low salt diet -Debility--- PT/ OT Subjective Date of service: 04/07/18 Principal diagnosis: weak arms and legs Interval history: Patient able to move her legs and arms Objective - Constitutional Vitals: Vital Signs - 12hr 04/07/18 04/07/18 07:28 14:40 Temperature 97.9 F 98.3 F Pulse Rate 55 L 75 Respiratory 20 19 Rate Blood Pressure 90/49 101/61 O2 Sat by Pulse 99 100 Oximetry General appearance: Present: no acute distress, well-nourished - EENT Eyes: PERRL, EOM intact ENT: hearing intact, clear oral mucosa Ears: bilateral: normal - Neck Neck: supple, normal ROM - Respiratory Respiratory effort: normal Respiratory: bilateral: CTA - Breasts Breasts: normal - Cardiovascular Rhythm: regular Heart Sounds: Present: S1 & S2. Absent: gallop, rub Extremities: pulses intact, No edema, normal color, Full ROM - Gastrointestinal General gastrointestinal: Present: soft, non-tender, non-distended, normal bowel sounds - Genitourinary Female genitourinary: normal - Integumentary Integumentary: clear, warm, dry - Musculoskeletal Musculoskeletal: 1, strength equal bilaterally - Neurologic Neurologic: moves all extremities - Psychiatric Psychiatric: memory intact, appropriate mood/affect, intact judgment & insight - Labs CBC & Chem 7: 04/05/18 05:59 04/05/18 05:59 Labs: Abnormal lab results 04/06/18 04/07/18 Range/Units 21:45 06:27 POC Glucose 109 H 66 L (70-105)
[2018-04-07] MEDS: PRAVACHOL PO SCH (22:51)
[2018-04-08] MEDS ORDERED: NACL 0.9% 500 ML 500 ML ONE (00:49)
[2018-04-08] MEDS ORDERED: NACL 0.9% 500 ML 500 ML IV ONE (00:52)
[2018-04-08] MEDS: D5NS 1,000 ML IV SCH (06:10)
[2018-04-08] MEDS: HumaLOG SUB-Q SCH ×4 (08:50→22:02)
[2018-04-08] MEDS: LOVENOX SUB-Q SCH (10:28)
[2018-04-08] MEDS: ASPIRIN PO SCH (10:28)
--- NOTE | 2018-04-08 14:24 | Magnetic Resonance Report ---
FINAL REPORT EXAM: MR THORACIC SPINE WO/W CON HISTORY: weak numb all 4's TECHNIQUE: MRI of the thoracic spine without and with IV contrast. PRIORS: None currently available. FINDINGS: No continuing education dean lines provided. Thoracic cord is of normal caliber and signal characteristic. Marrow signal characteristics are appropriate for age. There is no fracture. There is no subluxation. Mild disc bulges in the upper thoracic spine without significant canal narrowing. Some foraminal narrowing identified. Remaining levels do not demonstrate significant canal or foraminal narrowing. Prevertebral soft tissue structures are unremarkable. IMPRESSION: Mild discogenic disease in the upper thoracic spine.
--- NOTE | 2018-04-08 14:24 | Magnetic Resonance Report ---
FINAL REPORT PROCEDURE: MRI cervical spine without and with contrast. TECHNIQUE: Magnetic resonance imaging of the cervical spine was performed using standard pulse sequences without contrast material followed by the IV injection of paramagnetic contrast and further sequences. HISTORY: Weak numb arms and legs. COMPARISON: No prior studies are available for comparison. FINDINGS: The cervical vertebrae have normal height and alignment. There are no fractures. There is no subluxation. The C1-2 and C2-3 levels appear normal. There is abnormal signal intensity within the C3 and C4 vertebral bodies. These vertebral bodies have low T1 signal intensity and bright T2 and STIR signal intensity. There is also some enhancement of both of these vertebrae on the post-contrast T1 weighted images. The disc space at C3-4 also has slightly increased signal intensity on the T2 and inversion recovery sequences. I believe that there is some faint enhancement within this disc on the post-contrast images. The findings are worrisome for discitis and osteomyelitis. Clinical correlation is recommended. There is a small broad-based posterior disc protrusion at C3-4. This causes mild narrowing of the spinal canal. The C4-5 disc space appears satisfactory. At C5-6 there is a focal posterior disc protrusion. This is located to the left of center. This makes contact with the cervical cord. There is also a focal posterior disc protrusion at C6-7. This is also located to the left of center and makes contact with the cervical cord. The C7-T1 level appears satisfactory. The cervical cord has a normal caliber and normal signal intensity. IMPRESSION: Abnormal signal intensity at C3 and C4. Suspected discitis with adjacent osteomyelitis. Mild spinal canal narrowing at C3-4. Small focal posterior disc protrusions at C5-6 and C6-7. Both of these are located to the left of center.
--- NOTE | 2018-04-08 14:26 | Magnetic Resonance Report ---
FINAL REPORT EXAM: MR BRAIN WO/W CON HISTORY: weakness all 4 limbs with numbness right hand/legs TECHNIQUE: MRI of the brain without and with IV contrast. PRIORS: MRI brain March 29, 2018. FINDINGS: Midline structures are unremarkable. There is no tonsillar ectopy. Age appropriate song-white matter differentiation is noted. There is no hydrocephalus. There is no mass. There is no hemorrhage. There is no midline shift. There is no restricted diffusion to suggest acute ischemia. The CP angles are grossly noted. Major flow voids are present. After the administration of contrast, no abnormal enhancing lesions are identified. Paranasal sinuses are unremarkable. Globes are intact. Calvarial signal characteristics are grossly unremarkable. Extracranial soft tissues are intact. IMPRESSION: No acute intracranial findings.
--- NOTE | 2018-04-08 17:15 | Discharge Summary ---
Providers - Providers Date of Admission: 03/27/18 21:55 Date of discharge: 04/08/18 Attending physician: DAVID MARQUEZ 03/27/18 Consult to Physician [CONS] Routine Comment: LEFT CONSULT AT EXT [id number] Consulting Provider: NOHEMI LOERA Physician Instructions: Reason For Exam: possible cva 03/27/18 21:55 Occupational Therapy Evaluate and Treat [CONS] Routine Comment: Reason For Exam: Neuro deficits Physical Therapy Evaluation and Treat [CONS] Routine Comment: Reason For Exam: Neuro deficits 03/30/18 12:42 Consult to Case Management [CONS] Routine Services Needed at Discharge: Other Notified:: copy left for cm Comment:: help with discharge 04/02/18 17:20 Consult to Mental Health [CONS] Urgent Reason For Exam: psych 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 Notified:: GURPREET BURT Phone number called:: [phone] Was contact made?: Yes If yes, spoke with:: GURPREET BURT Time called:: 17:20 Comment:: fax to [phone] 04/04/18 15:02 Consult to Physician [CONS] Routine Comment: LS spine Mri ordered Consulting Provider: FLORENCIO ROD Physician Instructions: Reason For Exam: Paraplegia versus Functiional Primary care physician: [employer] Hospitalization Condition: Stable Hospital course: -Paraplegia -LS spine MRI --normal except for a small teat in annulus C Spine MRI pending ,Also Neuro eval Appreciated-Improving--- probably functional component -Acute metabolic encephalopathy --resolved -Hypoglycemia, --resolved no history of DM and A1c is normal--5.4 -Dyslipidemia: treat with statin -Hypertension: low salt diet -Debility--- PT/ OT D/c tp retirement Disposition: DC-01 TO HOME OR SELFCARE Core Measure Documentation - Palliative Care Palliative Care/ Comfort Measures: Not Applicable - Core Measures Any of the following diagnoses?: none Exam - Constitutional Vitals: Temp Pulse Resp BP Pulse Ox 97.9 F 66 20 93/51 100 04/08/18 16:03 04/08/18 16:03 04/08/18 16:03 04/08/18 16:03 04/08/18 16:03 General appearance: Present: no acute distress, well-nourished - EENT Eyes: Present: PERRL ENT: hearing intact, clear oral mucosa - Neck Neck: Present: supple, normal ROM - Respiratory Respiratory effort: normal Respiratory: bilateral: CTA - Cardiovascular Heart Sounds: Present: S1 & S2. Absent: rub, click - Extremities Extremities: pulses symmetrical, No edema Peripheral Pulses: within normal limits - Abdominal General gastrointestinal: Present: soft, non-tender, non-distended, normal bowel sounds Female genitourinary: Present: normal - Integumentary Integumentary: Present: clear, warm, dry - Musculoskeletal Musculoskeletal: gait normal, strength equal bilaterally - Psychiatric Psychiatric: appropriate mood/affect, intact judgment & insight - Neurologic Neurologic: CNII-XII intact, moves all extremities Plan Activity: no restrictions Weight Bearing Status: Weight Bear as Tolerated Follow up with: PRIMARY CARE,MD [Primary Care Provider] - 3-5 Days Prescriptions: Aspirin [Aspirin TAB] 325 mg PO QDAY #30 tablet Pravastatin [Pravachol] 20 mg PO QHS #30 tablet
[2018-04-08] MEDS: PRAVACHOL PO SCH (22:02)
[2018-04-09] MEDS: HumaLOG SUB-Q SCH ×4 (08:22→23:50)
--- NOTE | 2018-04-09 09:22 | Physician Progress Note ---
SUBJECTIVE: I saw this patient about 2 weeks ago. She is a 47-year-old homeless female who apparently had an episode that looked like a stroke upon admission. She had a slurred speech. She was very weak. She had weakness in the lower extremities also. She had a stroke alert. Then, I took another history from her and she said that she also sort of had some kind of a seizure when all her body became stiffened. She said she had history of seizure. She was then seen by Dr. Wu the following neurologist and ordered an MRI of the brain, which did not show anything; cervical spine showed some degenerative cervical disease, but no lesion in the parenchymal cord. There are some episodes about 3 or 4 that suggest narrowing of the cord. Thoracic spine is negative. The patient overall said that she is much better now and in the fact that when I first saw her, she was feeling sick, weak, but now she looks better. In fact, she was sitting in the chair. She has no generalized finding just this weakness. She said she could walk. ASSESSMENT: No definitive diagnosis. This patient may have had some type of ____ , but unusual for loss of consciousness. She did say could have had a seizure. Other possibilities such as compressive cord lesion was not proven. ____ diagnosis like multiple sclerosis was also not proven. PLAN: Nutrition and physical therapy. Look for my consultation, which I could not locate right now. JOB# [id number] NEELIMA/GEOVANNY
[2018-04-09] MEDS: TYLENOL PO PRN (12:06)
[2018-04-09] MEDS: ASPIRIN PO SCH (12:07)
[2018-04-09] MEDS: LOVENOX SUB-Q SCH ×2 (12:08→12:09)
--- NOTE | 2018-04-09 14:22 | Progress Note ---
Assessment and Plan Assessment and plan: Patient is a 47 yo woman who is homeless by report with a history of hypertension who presented to ED with ams, confusion, slurred speech and left leg/side weakness. She was found to have blood glucose of 40 and given dextrose. * CTA neck IMPRESSION: Carotid arteries and vertebral arteries appear widely patent without occlusion, significant stenosis or dissection. * CTA head IMPRESSION: The anterior and the posterior circulation are intact. No acute or focal abnormalities are identified * CT brain wo contrast IMPRESSION: Negative CT of the head. No acute intracranial process noted. -Acute metabolic encephalopathy due to hypoglycemia: add dextrose to ivf -Hypoglycemia, no history of dm, i don't know if she took insulin: check a1c, and accucheck -Dyslipidemia: treat with statin -Hypertension: low salt diet -Hyperglycemia, ?new Dm: check a1c, 5.4 -Hypotension resolved -Paraplegia, see mri report * MRI brain negative * MRI Lumbar spine wo/w contrast IMPRESSION: Mild degenerative disc disease and chronic left paracentral annular tear at L4-5 as described. Otherwise, unremarkable MRI lumbar spine with and without contrast. No evidence for canal stenosis, herniation or nerve impingement. * MRI cervical spine wo/w contrast IMPRESSION: Abnormal signal intensity at C3 and C4. Suspected discitis with adjacent osteomyelitis. Mild spinal canal narrowing at C3-4. Small focal posterior disc protrusions at C5-6 and C6-7. Both of these are located to the left of center. D/W Neurology, Dr. Kirby. ?discitis, Consult ID to investigation Hold discharge History Interval history: Patient was seen and examined. Follow-up on current diagnosis of AMS, resolved. Overnight uneventful. Patient denies any chest pain, shortness breath, nausea/ vomiting or severe headaches. Imaging, nursing note, chart, labs and old chart reviewed. Discussed with patient. She is cooperating with Physical therapy, took a couple of steps. Hospitalist Physical - Physical exam Narrative exam: GEN: WDWN, NAD, Awake, Alert, Orientated HEENT: NCAT, EOMI, PERRL, OP Clear NECK: supple, no adenopathy, no thyromegaly, no JVD CVS/HEART: RRR, normal S1S2, pulses present bilaterally CHEST/LUNGS: CTA B, Symmetrical chest expansion, good air entry bilaterally GI/Abdomen: soft, NTND, good bowel sounds, no guarding or rebound /Bladder: no suprapubic tenderness, no CVA or paraspinal tenderness EXT/Skin: no c/c/e, no obvious rash MSK: FROM x 4 Neuro: CN 2-12 grossly intact, no new focal deficits, she doesn't cooperate with exam, doesn't follow all commands Psych: depressed - Constitutional Vitals: Temp Pulse Resp BP Pulse Ox 97.1 F L 65 20 113/75 100 04/09/18 08:19 04/09/18 08:19 04/09/18 08:19 04/09/18 08:19 04/09/18 08:19 General appearance: Present: no acute distress, well-nourished Results - Labs CBC & Chem 7: 04/05/18 05:59 04/05/18 05:59 Labs: Laboratory Last Values WBC 3.2 K/mm3 (4.5-11.0) L 04/05/18 05:59 RBC 3.89 M/mm3 (3.65-5.03) 04/05/18 05:59 Hgb 11.6 gm/dl (10.1-14.3) 04/05/18 05:59 Hct 34.4 % (30.3-42.9) 04/05/18 05:59 MCV 89 fl (79-97) 04/05/18 05:59 MCH 30 pg (28-32) 04/05/18 05:59 MCHC 34 % (30-34) 04/05/18 05:59 RDW 17.8 % (13.2-15.2) H 04/05/18 05:59 Plt Count 301 K/mm3 (140-440) 04/05/18 05:59 Lymph % (Auto) 47.7 % (13.4-35.0) H 04/05/18 05:59 [place] % (Auto) 9.9 % (0.0-7.3) H 04/05/18 05:59 Eos % (Auto) 3.3 % (0.0-4.3) 04/05/18 05:59 Baso % (Auto) 0.9 % (0.0-1.8) 04/05/18 05:59 Lymph # 1.5 K/mm3 (1.2-5.4) 04/05/18 05:59 [place] # 0.3 K/mm3 (0.0-0.8) 04/05/18 05:59 Eos # 0.1 K/mm3 (0.0-0.4) 04/05/18 05:59 Baso # 0.0 K/mm3 (0.0-0.1) 04/05/18 05:59 Seg Neutrophils % 38.2 % (40.0-70.0) L 04/05/18 05:59 Seg Neutrophils # 1.2 K/mm3 (1.8-7.7) L 04/05/18 05:59 PT 14.5 Sec. (12.2-14.9) 03/27/18 16:12 INR 1.07 (0.87-1.13) 03/27/18 16:12 APTT 30.4 Sec. (24.2-36.6) 03/27/18 16:12 Thrombin Time 16.8 Sec. (15.1-19.6) 03/27/18 16:12 Sodium 141 mmol/L (137-145) 04/05/18 05:59 Potassium 3.9 mmol/L (3.6-5.0) 04/05/18 05:59 Chloride 103.5 mmol/L (98-107) 04/05/18 05:59 Carbon Dioxide 27 mmol/L (22-30) 04/05/18 05:59 Anion Gap 14 mmol/L 04/05/18 05:59 BUN 11 mg/dL (7-17) 04/05/18 05:59 Creatinine 0.7 mg/dL (0.7-1.2) 04/05/18 05:59 Estimated GFR > 60 ml/min 04/05/18 05:59 BUN/Creatinine Ratio 16 % 04/05/18 05:59 Glucose 79 mg/dL (65-100) 04/05/18 05:59 POC Glucose 89 (70-105) 04/09/18 12:30 Hemoglobin A1c 5.4 % (4-6) 03/28/18 12:35 Calcium 8.6 mg/dL (8.4-10.2) 04/05/18 05:59 Total Bilirubin 0.40 mg/dL (0.1-1.2) 04/05/18 05:59 AST 14 units/L (5-40) 04/05/18 05:59 ALT 7 units/L (7-56) 04/05/18 05:59 Alkaline Phosphatase 40 units/L (35-129) 04/05/18 05:59 Total Creatine Kinase 248 units/L (30-135) H 03/28/18 04:55 CK-MB (CK-2) 3.8 ng/mL (0.0-4.0) 03/28/18 04:55 CK-MB (CK-2) Rel Index 1.5 (0-4) 03/28/18 04:55 Troponin T < 0.010 ng/mL (0.00-0.029) 03/28/18 04:55 Total Protein 6.5 g/dL (6.3-8.2) 04/05/18 05:59 Albumin 3.2 g/dL (3.9-5) L 04/05/18 05:59 Albumin/Globulin Ratio 1.0 % 04/05/18 05:59 Triglycerides 39 mg/dL (2-149) 03/28/18 04:55 Cholesterol 185 mg/dL (50-199) 03/28/18 04:55 LDL Cholesterol Direct 110 mg/dL (50-130) 03/28/18 04:55 HDL Cholesterol 79 mg/dL (40-59) H 03/28/18 04:55 Cholesterol/HDL Ratio 2.34 % 03/28/18 04:55
[2018-04-09] MEDS: D5NS 1,000 ML IV SCH (22:11)
[2018-04-09] MEDS: PRAVACHOL PO SCH (22:11)
--- NOTE | 2018-04-09 23:59 | Physician Progress Note ---
SUBJECTIVE: The patient is a lady who was admitted here because of some confusion, slurring of speech. Her left side was weak also. She is homeless. She was also hypoglycemic when she was seen. Therefore, she has numerous complaints on presentation. She was stabilized medically by the medical team. She had CTA of the neck, CTA of the head and CT of the brain without contrast and all of these were not remarkable. She has an MRI of the lumbar spine, which is negative. MRI of the cervical spine showed abnormal signal intensity at C3-C4 and suspicion of diskitis. I reviewed the films and I was not so strong with the diagnosis of diskitis. The MRI is not satisfactory to my reading. The patient, however, had shown significant improvement. She is now sitting up. She complained only of a problem in the shoulders. She has no problem in the legs. She has no weakness. PHYSICAL EXAMINATION: MENTAL STATUS: Unremarkable. She is awake, alert, stronger. NEUROLOGIC: Cranial nerves are intact. Motor exam is 5/5 bilaterally. Reflexes were strong in the upper and lower extremities and they were symmetrical. There was no Babinski even after several tries. CLINICAL IMPRESSION: 1. Mainly good nutrition, hydration, especially using also multivitamins, vitamin B complex. 2. Physical therapy. 3. I would like to have the MRI of the cervical spine with and without contrast to be repeated. 4. Infectious Disease evaluation to take a look at the possibility of diskitis. I am not too sure about this diagnosis on the basis of the MRI scan of the cervical spine. PLAN: Empiric antibiotics, but we will wait for the Infectious Disease evaluation. JOB# [id number] NEELIMA/GEOVANNY
[2018-04-10 07:13] LABS: Hematocrit 35.3 % (30.3-42.9); Hemoglobin 11.8 gm/dl (10.1-14.3); Mean Corpuscular HGB Conc 34 % (30-34); Mean Corpuscular Hemoglobin 30 pg (28-32); Mean Corpuscular Volume 88 fl (79-97); Platelet Count 313 K/mm3 (140-440); Red Cell Distribution Width 17.8 % (13.2-15.2)
[2018-04-10 07:41] LABS: BUN/Creatinine Ratio 16; Blood Urea Nitrogen 11 mg/dL (7-17); Calcium 9.1 mg/dL (8.4-10.2); Hemolysis Index 2
[2018-04-10] MEDS: HumaLOG SUB-Q SCH ×3 (07:56→19:45)
--- NOTE | 2018-04-10 09:55 | Consultation ---
History of Present Illness - Reason for Consult Consult date: 04/10/18 discitis Requesting physician: LELIA HUNT - History of Present Illness 47 y/o female, homeless, with history of hypertension; admitted on 03/27/18 due to AMS / confusion, slurred speech and left leg/side weakness. Patient is a poor historian. She does report complaining of lower back pain for the last 3 months. She also reports subjective fever and chills. She was living on the streets and she did not check her temperature. She has been coughing from a upper respiratory infection for the last 2 weeks. Lower back pain is 8 out of 10 in the middle nor ideation. She does report previous history of UTIs. Denies a staph skin infection. Denies IV drug use. In the ED, initial temperature was 98.2, heart rate 87, respiration 18, O2 sat 97%, blood pressure 98/71. Initial white count 4.3. Hemoglobin 11.1. Platelets 357. Creatinine 1.1. Glucose 1138 (after D10). She was found to have blood glucose of 40 and given dextrose. Work-up showed CT head negative, CTA showed Carotid The anterior and the posterior circulation are intact, brain arteries and vertebral arteries appear widely patent without occlusion. MRI cervical spine wo/w contrast showed abnormal signal intensity at C3 and C4. Suspected discitis with adjacent osteomyelitis. Mild spinal canal narrowing at C3-4. Small focal posterior disc protrusions at C5-6 and C6-7. Both of these are located to the left of center. CT lumbar Mild degenerative disc disease and chronic left paracentral annular tear at L4-5 as described. Microbiology: none Current Antimicrobials: none Previous Antimicrobials: Past History Past Medical History: No medical history Past Surgical History: Social history: other (Homeless) Medications and Allergies Allergies Allergy/AdvReac Type Severity Reaction Status Date / Time Penicillins Allergy Swelling Verified 03/27/18 15:46 Home Medications Medication Instructions Recorded Confirmed Last Taken Type Aspirin [Aspirin TAB] 325 mg PO QDAY #30 tablet 03/29/18 Unknown Rx Cetirizine HCl [ZyrTEC] 10 mg PO QAM 7 Days #30 capsule 04/08/18 Unknown Rx Fluticasone [Flonase] 1 spray NS QDAY 14 Days #1 bottle 04/08/18 Unknown Rx Oxycodone HCl/Acetaminophen 1 each PO Q6HR PRN #24 tablet 04/08/18 Unknown Rx [Percocet 7.5/325 mg] Active Meds: Active Medications Acetaminophen (Tylenol) 650 mg PO Q4H PRN PRN Reason: Pain, Mild (1-3) Last Admin: 04/09/18 12:06 Dose: 650 mg Aspirin (Aspirin) 325 mg PO QDAY MARIKA Last Admin: 04/09/18 12:07 Dose: 325 mg Bisacodyl (Dulcolax) 10 mg [place] QDAY PRN PRN Reason: Constipation Dextrose (D50w (25gm) Syringe) 50 ml IV PRN PRN PRN Reason: Hypoglycemia Enoxaparin Sodium (Lovenox) 40 mg SUB-Q QDAY [facility] Last Admin: 04/09/18 12:09 Dose: 40 mg Dextrose/Sodium Chloride (D5ns) 1,000 mls @ 100 mls/hr IV DIRECT MARIKA Last Admin: 04/09/18 22:11 Dose: 100 mls/hr Insulin Human Lispro (Humalog) 0 unit SUB-Q ACHS [facility]; Protocol Last Admin: 04/10/18 07:56 Dose: Not Given Magnesium Hydroxide (Milk Of Magnesia) 30 ml PO Q4H PRN PRN Reason: Constipation Metoclopramide HCl (Reglan) 10 mg PO Q6H PRN PRN Reason: Nausea And Vomiting Ondansetron HCl (Zofran) 4 mg IV Q8H PRN PRN Reason: N/V unrelieved by Reglan Pravastatin Sodium (Pravachol) 40 mg PO QHS [facility] Last Admin: 04/09/18 22:11 Dose: 40 mg Sodium Chloride (Sodium Chloride Flush Syringe 10 Ml) 10 ml IV PRN PRN PRN Reason: LINE FLUSH Last Admin: 03/31/18 21:29 Dose: 10 ml Physical Examination - Physical Exam Narrative exam: General appearance: Alert in NAD, conversant Eyes: anicteric sclerae, moist conjunctivae; no lid-lag; PERRLA HENT: Atraumatic; oropharynx clear with moist mucous membranes and no mucosal ulcerations/no oral thrush; normal hard and soft palate. Normal external ears. Neck: Trachea midline; supple, no thyromegaly or lymphadenopathy Lungs: CTA, with normal respiratory effort and no intercostal retractions CV: RRR, no murmurs Abdomen: Soft, non-tender; no masses or hepatosplenomegaly Extremities: No peripheral edema or extremity lymphadenopathy Skin: Normal temperature, turgor and texture; no rash, ulcers or subcutaneous nodules Psych: Appropriate affect, alert and oriented to person, place and time. Neuro: alert and oriented x 3. Moving all extermities Lines: - Constitutional Vitals: Vital Signs Temp Pulse Resp BP Pulse Ox 98.3 F 54 L 18 101/62 99 04/10/18 07:34 04/10/18 07:34 04/10/18 07:34 04/10/18 07:34 04/10/18 07:34 Temperature -Last 24 Hours Temperature 98.3 F Temperature 97.7 F Temperature 98.4 F Results - Labs CBC & Chem 7: 04/10/18 06:23 04/10/18 06:23 Labs: Abnormal lab results 04/09/18 04/10/18 Range/Units 21:18 06:23 WBC 3.2 L (4.5-11.0) K/mm3 RDW 17.8 H (13.2-15.2) % POC Glucose 131 H (70-105) Assessment and Plan Assessment: 1) Presumed C3-C4 discitis: no evidence of sepsis, no neurologic deficits -MRI cervical spine wo/w contrast showed abnormal signal intensity at C3 and C4. Suspected discitis with adjacent osteomyelitis. Mild spinal canal narrowing at C3-4. Small focal posterior disc protrusions at C5-6 and C6-7. Both of these are located to the left of center. -CT lumbar Mild degenerative disc disease and chronic left paracentral annular tear at L4-5 as described. 2) TIA: Work-up showed CT head negative, CTA showed Carotid The anterior and the posterior circulation are intact, brain arteries and vertebral arteries appear widely patent without occlusion. MRI brain neg. 3) Homeless 4) Hypertension 5) Recent cough 6) Weight loss Plan: -IR consult for C3 and C4 biopsy / cultures -obtain blood cultures, UA, urine culture -obtain procalcitonin, C-reactive protein (CRP) -obtain TTE and CXR -hold off starting antibiotics after biopsy is taken - will do vancomycin and ceftriaxone -very difficult d/c planning since she is homeless Thank you for your consultation, will follow up with you. Melvi Quach MD Infectious Diseases Specialist [facility] ([facility] M [phone] O [phone]
[2018-04-10] MEDS: ASPIRIN PO SCH (11:05)
[2018-04-10] MEDS: LOVENOX SUB-Q SCH (11:05)
[2018-04-10] MEDS: TYLENOL PO PRN ×2 (11:05→23:22)
[2018-04-10] MEDS: D5NS 1,000 ML IV SCH ×2 (11:57→23:21)
[2018-04-10 12:34] LABS: Bilirubin,Urine NEG (Negative); Blood,Urine NEG (Negative); Color,Urine Yellow (Yellow); Protein,Urine <15 mg/dL mg/dL (Negative); Urobilinogen,Urine < 2.0 mg/dL (<2.0)
--- NOTE | 2018-04-10 13:04 | XRay Report ---
CHEST 2 VIEWS INDICATION: Evaluate for pneumonia/cavities. COMPARISON: None similar. FINDINGS: Frontal and lateral chest radiographs suggest top normal heart size. Normal mediastinal and hilar contours. Clear lungs. Slight bony degenerative changes. CONCLUSION: No acute disease in the chest. Thank you for the opportunity to participate in this patient's care.
--- NOTE | 2018-04-10 15:19 | Progress Note ---
Assessment and Plan Assessment and plan: Patient is a 47 yo woman who is homeless by report with a history of hypertension who presented to ED with ams, confusion, slurred speech and left leg/side weakness. She was found to have blood glucose of 40 and given dextrose. * CTA neck IMPRESSION: Carotid arteries and vertebral arteries appear widely patent without occlusion, significant stenosis or dissection. * CTA head IMPRESSION: The anterior and the posterior circulation are intact. No acute or focal abnormalities are identified * CT brain wo contrast IMPRESSION: Negative CT of the head. No acute intracranial process noted. -Acute metabolic encephalopathy due to hypoglycemia: add dextrose to ivf -Hypoglycemia, no history of dm, i don't know if she took insulin: check a1c, and accucheck -Dyslipidemia: treat with statin -Hypertension: low salt diet -Hyperglycemia, ?new Dm: check a1c, 5.4 -Hypotension resolved -Paraplegia, see mri report * MRI brain negative * MRI Lumbar spine wo/w contrast IMPRESSION: Mild degenerative disc disease and chronic left paracentral annular tear at L4-5 as described. Otherwise, unremarkable MRI lumbar spine with and without contrast. No evidence for canal stenosis, herniation or nerve impingement. * MRI cervical spine wo/w contrast IMPRESSION: Abnormal signal intensity at C3 and C4. Suspected discitis with adjacent osteomyelitis. Mild spinal canal narrowing at C3-4. Small focal posterior disc protrusions at C5-6 and C6-7. Both of these are located to the left of center. D/W Neurology, Dr. Kirby. ?discitis, Consult ID to investigation IR consult of bone biospy Difficult case as patient is homeless, and has no insurance, so home IV abx will be difficult to arrange History Interval history: Patient was seen and examined. Follow-up on current diagnosis of AMS, resolved. Overnight uneventful. Patient denies any chest pain, shortness breath, nausea/ vomiting or severe headaches. Imaging, nursing note, chart, labs and old chart reviewed. Discussed with patient. She is cooperating with Physical therapy, took a couple of steps. Hospitalist Physical - Physical exam Narrative exam: GEN: WDWN, NAD, Awake, Alert, Orientated HEENT: NCAT, EOMI, PERRL, OP Clear NECK: supple, no adenopathy, no thyromegaly, no JVD CVS/HEART: RRR, normal S1S2, pulses present bilaterally CHEST/LUNGS: CTA B, Symmetrical chest expansion, good air entry bilaterally GI/Abdomen: soft, NTND, good bowel sounds, no guarding or rebound /Bladder: no suprapubic tenderness, no CVA or paraspinal tenderness EXT/Skin: no c/c/e, no obvious rash MSK: FROM x 4 Neuro: CN 2-12 grossly intact, no new focal deficits, she doesn't cooperate with exam, doesn't follow all commands Psych: depressed - Constitutional Vitals: Temp Pulse Resp BP Pulse Ox 98.3 F 54 L 18 101/62 99 04/10/18 07:34 04/10/18 07:34 04/10/18 07:34 04/10/18 07:34 04/10/18 07:34 General appearance: Present: no acute distress, well-nourished Results - Labs CBC & Chem 7: 04/10/18 06:23 04/10/18 06:23 Labs: Laboratory Last Values WBC 3.2 K/mm3 (4.5-11.0) L 04/10/18 06:23 RBC 4.00 M/mm3 (3.65-5.03) 04/10/18 06:23 Hgb 11.8 gm/dl (10.1-14.3) 04/10/18 06:23 Hct 35.3 % (30.3-42.9) 04/10/18 06:23 MCV 88 fl (79-97) 04/10/18 06:23 MCH 30 pg (28-32) 04/10/18 06:23 MCHC 34 % (30-34) 04/10/18 06:23 RDW 17.8 % (13.2-15.2) H 04/10/18 06:23 Plt Count 313 K/mm3 (140-440) 04/10/18 06:23 Lymph % (Auto) 47.7 % (13.4-35.0) H 04/05/18 05:59 [place] % (Auto) 9.9 % (0.0-7.3) H 04/05/18 05:59 Eos % (Auto) 3.3 % (0.0-4.3) 04/05/18 05:59 Baso % (Auto) 0.9 % (0.0-1.8) 04/05/18 05:59 Lymph # 1.5 K/mm3 (1.2-5.4) 04/05/18 05:59 [place] # 0.3 K/mm3 (0.0-0.8) 04/05/18 05:59 Eos # 0.1 K/mm3 (0.0-0.4) 04/05/18 05:59 Baso # 0.0 K/mm3 (0.0-0.1) 04/05/18 05:59 Seg Neutrophils % 38.2 % (40.0-70.0) L 04/05/18 05:59 Seg Neutrophils # 1.2 K/mm3 (1.8-7.7) L 04/05/18 05:59 PT 14.5 Sec. (12.2-14.9) 03/27/18 16:12 INR 1.07 (0.87-1.13) 03/27/18 16:12 APTT 30.4 Sec. (24.2-36.6) 03/27/18 16:12 Thrombin Time 16.8 Sec. (15.1-19.6) 03/27/18 16:12 Sodium 145 mmol/L (137-145) 04/10/18 06:23 Potassium 3.9 mmol/L (3.6-5.0) 04/10/18 06:23 Chloride 104.7 mmol/L (98-107) 04/10/18 06:23 Carbon Dioxide 28 mmol/L (22-30) 04/10/18 06:23 Anion Gap 16 mmol/L 04/10/18 06:23 BUN 11 mg/dL (7-17) 04/10/18 06:23 Creatinine 0.7 mg/dL (0.7-1.2) 04/10/18 06:23 Estimated GFR > 60 ml/min 04/10/18 06:23 BUN/Creatinine Ratio 16 % 04/10/18 06:23 Glucose 74 mg/dL (65-100) 04/10/18 06:23 POC Glucose 101 (70-105) 04/10/18 12:03 Hemoglobin A1c 5.4 % (4-6) 03/28/18 12:35 Calcium 9.1 mg/dL (8.4-10.2) 04/10/18 06:23 Total Bilirubin 0.40 mg/dL (0.1-1.2) 04/05/18 05:59 AST 14 units/L (5-40) 04/05/18 05:59 ALT 7 units/L (7-56) 04/05/18 05:59 Alkaline Phosphatase 40 units/L (35-129) 04/05/18 05:59 Total Creatine Kinase 248 units/L (30-135) H 03/28/18 04:55 CK-MB (CK-2) 3.8 ng/mL (0.0-4.0) 03/28/18 04:55 CK-MB (CK-2) Rel Index 1.5 (0-4) 03/28/18 04:55 Troponin T < 0.010 ng/mL (0.00-0.029) 03/28/18 04:55 C-Reactive Protein 0.10 mg/dL (0.00-1.30) 04/10/18 14:05 Total Protein 6.5 g/dL (6.3-8.2) 04/05/18 05:59 Albumin 3.2 g/dL (3.9-5) L 04/05/18 05:59 Albumin/Globulin Ratio 1.0 % 04/05/18 05:59 Triglycerides 39 mg/dL (2-149) 03/28/18 04:55 Cholesterol 185 mg/dL (50-199) 03/28/18 04:55 LDL Cholesterol Direct 110 mg/dL (50-130) 03/28/18 04:55 HDL Cholesterol 79 mg/dL (40-59) H 03/28/18 04:55 Cholesterol/HDL Ratio 2.34 % 03/28/18 04:55 Urine Color Yellow (Yellow) 04/10/18 10:13 Urine Turbidity Clear (Clear) 04/10/18 10:13 Urine pH 6.0 (5.0-7.0) 04/10/18 10:13 Ur Specific [place] 1.008 (1.003-1.030) 04/10/18 10:13 Urine Protein <15 mg/dl mg/dL (Negative) 04/10/18 10:13 Urine Glucose (UA) Neg mg/dL (Negative) 04/10/18 10:13 Urine Ketones Neg mg/dL (Negative) 04/10/18 10:13 Urine Blood Neg (Negative) 04/10/18 10:13 Urine Nitrite Neg (Negative) 04/10/18 10:13 Urine Bilirubin Neg (Negative) 04/10/18 10:13 Urine Urobilinogen < 2.0 mg/dL (<2.0) 04/10/18 10:13 Ur Leukocyte Esterase Neg (Negative) 04/10/18 10:13 Urine WBC (Auto) 1.0 /HPF (0.0-6.0) 04/10/18 10:13 Urine RBC (Auto) 1.0 /HPF (0.0-6.0) 04/10/18 10:13 U Epithel Cells (Auto) 2.0 /HPF (0-13.0) 04/10/18 10:13
[2018-04-10] MEDS ORDERED: NACL 0.9% 500 ML 500 ML IV ONE (16:05)
--- NOTE | 2018-04-10 22:26 | Physician Progress Note ---
SUBJECTIVE: The patient is being followed neurologically because problem with mentation described as confusion, slurred speech and weakness in the left side; however, she improved. She was also found to have hypoglycemia at that time. All her tests so have been negative except for an area in the C3-C4, which was suspected to be diskitis as described by the radiologist. I reviewed the area, but the diskitis is not very impressive. However, for that reason, we consulted Dr. Quach Infectious Disease. It was her feeling to proceed and rule out this area. Therefore, a biopsy will be done and she is being investigated for infection in other parts of the body. OBJECTIVE: The patient is definitely much improved, a lot better. She has good mentation. She is always smiling. Her report is excellent. She has no focal findings that I could see. Her extremities are stronger than before. ASSESSMENT: The patient has transient episode of confusion, encephalopathy and weakness of the legs, slurred speech, left more than right. Stroke was not confirmed and I suspect that this could be related to severe body neglect being homeless, and of course, she might be prone to stroke still. Questionable diskitis in the MRI. PLAN: I concur with Dr. Quach and proceed with the plan. This was fully discussed with the patient who agreed. JOB# [id number] NEELIMA/GEOVANNY
[2018-04-10] MEDS: PRAVACHOL PO SCH (23:23)
[2018-04-11] MEDS: HumaLOG SUB-Q SCH ×5 (00:42→23:41)
--- NOTE | 2018-04-11 09:15 | Progress Note ---
Assessment and Plan Assessment and plan: Patient is a 47 yo woman who is homeless by report with a history of hypertension who presented to ED with ams, confusion, slurred speech and left leg/side weakness. She was found to have blood glucose of 40 and given dextrose. * CTA neck IMPRESSION: Carotid arteries and vertebral arteries appear widely patent without occlusion, significant stenosis or dissection. * CTA head IMPRESSION: The anterior and the posterior circulation are intact. No acute or focal abnormalities are identified * CT brain wo contrast IMPRESSION: Negative CT of the head. No acute intracranial process noted. -Acute metabolic encephalopathy due to hypoglycemia: add dextrose to ivf -Hypoglycemia, no history of dm, i don't know if she took insulin: check a1c, and accucheck -Dyslipidemia: treat with statin -Hypertension: low salt diet -Hyperglycemia, ?new Dm: check a1c, 5.4 -Hypotension resolved -Paraplegia, see mri report * MRI brain negative * MRI Lumbar spine wo/w contrast IMPRESSION: Mild degenerative disc disease and chronic left paracentral annular tear at L4-5 as described. Otherwise, unremarkable MRI lumbar spine with and without contrast. No evidence for canal stenosis, herniation or nerve impingement. * MRI cervical spine wo/w contrast IMPRESSION: Abnormal signal intensity at C3 and C4. Suspected discitis with adjacent osteomyelitis. Mild spinal canal narrowing at C3-4. Small focal posterior disc protrusions at C5-6 and C6-7. Both of these are located to the left of center. D/W Neurology, Dr. Kirby. ?discitis, Consult ID to investigation IR consult of bone biospy per Infectious Disease Difficult case as patient is homeless, and has no insurance, so home IV abx will be difficult to arrange 04/11/18: D/w IR, Dr. Harrell, too high risk to do c-spine biopsy at [facility], will need higher level of care I spoke Marlee from [facility] in transfer center as no Neurosurgical stock handler floorperson here==> spoke with Dr. Foster, ok to transfer [facility] main for NSY evaluation but must go thru Hospitalist services at [facility], awaiting call back==>spoke with Hospitalist Dr. Sierra who has accepted pending bed availability for med-surg History Interval history: Patient was seen and examined. Follow-up on current diagnosis of AMS, resolved. Overnight uneventful. Patient denies any chest pain, shortness breath, nausea/ vomiting or severe headaches. Imaging, nursing note, chart, labs and old chart reviewed. Discussed with patient. She is cooperating with Physical therapy, took a couple of steps. Hospitalist Physical - Physical exam Narrative exam: GEN: WDWN, NAD, Awake, Alert, Orientated HEENT: NCAT, EOMI, PERRL, OP Clear NECK: supple, no adenopathy, no thyromegaly, no JVD CVS/HEART: RRR, normal S1S2, pulses present bilaterally CHEST/LUNGS: CTA B, Symmetrical chest expansion, good air entry bilaterally GI/Abdomen: soft, NTND, good bowel sounds, no guarding or rebound /Bladder: no suprapubic tenderness, no CVA or paraspinal tenderness EXT/Skin: no c/c/e, no obvious rash MSK: FROM x 4 Neuro: CN 2-12 grossly intact, no new focal deficits, she doesn't cooperate with exam, doesn't follow all commands Psych: depressed - Constitutional Vitals: Temp Pulse Resp BP Pulse Ox 97.2 F L 57 L 18 99/66 99 04/11/18 07:34 04/11/18 07:34 04/11/18 07:34 04/11/18 07:34 04/11/18 07:34 General appearance: Present: no acute distress, well-nourished Results - Labs CBC & Chem 7: 04/10/18 06:23 04/10/18 06:23 Labs: Laboratory Last Values WBC 3.2 K/mm3 (4.5-11.0) L 04/10/18 06:23 RBC 4.00 M/mm3 (3.65-5.03) 04/10/18 06:23 Hgb 11.8 gm/dl (10.1-14.3) 04/10/18 06:23 Hct 35.3 % (30.3-42.9) 04/10/18 06:23 MCV 88 fl (79-97) 04/10/18 06:23 MCH 30 pg (28-32) 04/10/18 06:23 MCHC 34 % (30-34) 04/10/18 06:23 RDW 17.8 % (13.2-15.2) H 04/10/18 06:23 Plt Count 313 K/mm3 (140-440) 04/10/18 06:23 Lymph % (Auto) 47.7 % (13.4-35.0) H 04/05/18 05:59 [place] % (Auto) 9.9 % (0.0-7.3) H 04/05/18 05:59 Eos % (Auto) 3.3 % (0.0-4.3) 04/05/18 05:59 Baso % (Auto) 0.9 % (0.0-1.8) 04/05/18 05:59 Lymph # 1.5 K/mm3 (1.2-5.4) 04/05/18 05:59 [place] # 0.3 K/mm3 (0.0-0.8) 04/05/18 05:59 Eos # 0.1 K/mm3 (0.0-0.4) 04/05/18 05:59 Baso # 0.0 K/mm3 (0.0-0.1) 04/05/18 05:59 Seg Neutrophils % 38.2 % (40.0-70.0) L 04/05/18 05:59 Seg Neutrophils # 1.2 K/mm3 (1.8-7.7) L 04/05/18 05:59 PT 14.5 Sec. (12.2-14.9) 03/27/18 16:12 INR 1.07 (0.87-1.13) 03/27/18 16:12 APTT 30.4 Sec. (24.2-36.6) 03/27/18 16:12 Thrombin Time 16.8 Sec. (15.1-19.6) 03/27/18 16:12 Sodium 145 mmol/L (137-145) 04/10/18 06:23 Potassium 3.9 mmol/L (3.6-5.0) 04/10/18 06:23 Chloride 104.7 mmol/L (98-107) 04/10/18 06:23 Carbon Dioxide 28 mmol/L (22-30) 04/10/18 06:23 Anion Gap 16 mmol/L 04/10/18 06:23 BUN 11 mg/dL (7-17) 04/10/18 06:23 Creatinine 0.7 mg/dL (0.7-1.2) 04/10/18 06:23 Estimated GFR > 60 ml/min 04/10/18 06:23 BUN/Creatinine Ratio 16 % 04/10/18 06:23 Glucose 74 mg/dL (65-100) 04/10/18 06:23 POC Glucose 83 (70-105) 04/11/18 06:14 Hemoglobin A1c 5.4 % (4-6) 03/28/18 12:35 Calcium 9.1 mg/dL (8.4-10.2) 04/10/18 06:23 Total Bilirubin 0.40 mg/dL (0.1-1.2) 04/05/18 05:59 AST 14 units/L (5-40) 04/05/18 05:59 ALT 7 units/L (7-56) 04/05/18 05:59 Alkaline Phosphatase 40 units/L (35-129) 04/05/18 05:59 Total Creatine Kinase 248 units/L (30-135) H 03/28/18 04:55 CK-MB (CK-2) 3.8 ng/mL (0.0-4.0) 03/28/18 04:55 CK-MB (CK-2) Rel Index 1.5 (0-4) 03/28/18 04:55 Troponin T < 0.010 ng/mL (0.00-0.029) 03/28/18 04:55 C-Reactive Protein 0.10 mg/dL (0.00-1.30) 04/10/18 14:05 Total Protein 6.5 g/dL (6.3-8.2) 04/05/18 05:59 Albumin 3.2 g/dL (3.9-5) L 04/05/18 05:59 Albumin/Globulin Ratio 1.0 % 04/05/18 05:59 Triglycerides 39 mg/dL (2-149) 03/28/18 04:55 Cholesterol 185 mg/dL (50-199) 03/28/18 04:55 LDL Cholesterol Direct 110 mg/dL (50-130) 03/28/18 04:55 HDL Cholesterol 79 mg/dL (40-59) H 03/28/18 04:55 Cholesterol/HDL Ratio 2.34 % 03/28/18 04:55 Urine Color Yellow (Yellow) 04/10/18 10:13 Urine Turbidity Clear (Clear) 04/10/18 10:13 Urine pH 6.0 (5.0-7.0) 04/10/18 10:13 Ur Specific [place] 1.008 (1.003-1.030) 04/10/18 10:13 Urine Protein <15 mg/dl mg/dL (Negative) 04/10/18 10:13 Urine Glucose (UA) Neg mg/dL (Negative) 04/10/18 10:13 Urine Ketones Neg mg/dL (Negative) 04/10/18 10:13 Urine Blood Neg (Negative) 04/10/18 10:13 Urine Nitrite Neg (Negative) 04/10/18 10:13 Urine Bilirubin Neg (Negative) 04/10/18 10:13 Urine Urobilinogen < 2.0 mg/dL (<2.0) 04/10/18 10:13 Ur Leukocyte Esterase Neg (Negative) 04/10/18 10:13 Urine WBC (Auto) 1.0 /HPF (0.0-6.0) 04/10/18 10:13 Urine RBC (Auto) 1.0 /HPF (0.0-6.0) 04/10/18 10:13 U Epithel Cells (Auto) 2.0 /HPF (0-13.0) 04/10/18 10:13 HIV 1&2 Antibody Rapid Non react (Non React) 04/10/18 14:05 HIV P24 Antigen Non react (Non React) 04/10/18 14:05
--- NOTE | 2018-04-11 09:15 | Event Note ---
Date: 04/11/18 Asked to review imaging for possible cervical spine biopsy of C3/C4/disc. Cervical spine biopsies are technically difficult and have risks such as vertebral artery dissection and stroke associated with them. If cervical spine biopsy is required, then recommend transfer to tertiary care facility where such expertise exists.
[2018-04-11] MEDS: LOVENOX SUB-Q SCH (10:53)
[2018-04-11] MEDS: ASPIRIN PO SCH (10:53)
--- NOTE | 2018-04-11 13:13 | Discharge Summary ---
Providers - Providers Date of Admission: 03/27/18 21:55 Date of discharge: 04/12/18 Attending physician: LELIA HUNT 03/27/18 Consult to Physician [CONS] Routine Comment: LEFT CONSULT AT EXT [id number] Consulting Provider: NOHEMI KIRBY Physician Instructions: Reason For Exam: possible cva 03/27/18 21:55 Occupational Therapy Evaluate and Treat [CONS] Routine Comment: Reason For Exam: Neuro deficits Physical Therapy Evaluation and Treat [CONS] Routine Comment: Reason For Exam: Neuro deficits 03/30/18 12:42 Consult to Case Management [CONS] Routine Services Needed at Discharge: Other Notified:: copy left for cm Comment:: help with discharge 04/02/18 17:20 Consult to Mental Health [CONS] Urgent Reason For Exam: psych Place consult to:: director of donor relations information assistant Notified:: GURPREET BURT Phone number called:: [phone] Was contact made?: Yes If yes, spoke with:: GURPREET BURT Time called:: 17:20 Comment:: fax to [phone] 04/04/18 15:02 Consult to Physician [CONS] Routine Comment: LS spine Mri ordered Consulting Provider: FLORENCIO ROD Physician Instructions: Reason For Exam: Paraplegia versus Functiional 04/09/18 14:25 Consult to Physician [CONS] Routine Comment: Consulting Provider: INDIRA HE Physician Instructions: Reason For Exam: Discitis 04/11/18 09:02 Consult to Interventional Radiology [CONS] Stat Consulting Provider: FLORENCIO INGRAM Reason For Exam: bone biopsy on c-spine Notified:: yes Primary care physician: GUILLOTINE OPERATOR Hospitalization Condition: Stable Hospital course: Patient is a 47 yo woman who is homeless by report with a history of hypertension who presented to ED with ams, confusion, slurred speech and left leg/side weakness. She was found to have blood glucose of 40 and given dextrose. * CTA neck IMPRESSION: Carotid arteries and vertebral arteries appear widely patent without occlusion, significant stenosis or dissection. * CTA head IMPRESSION: The anterior and the posterior circulation are intact. No acute or focal abnormalities are identified * CT brain wo contrast IMPRESSION: Negative CT of the head. No acute intracranial process noted. -Acute metabolic encephalopathy due to hypoglycemia: add dextrose to ivf -Hypoglycemia, no history of dm, i don't know if she took insulin: check a1c, and accucheck -Dyslipidemia: treat with statin -Hypertension: low salt diet -Hyperglycemia, ?new Dm: check a1c, 5.4 -Hypotension resolved -Paraplegia, see mri report * MRI brain negative * MRI Lumbar spine wo/w contrast IMPRESSION: Mild degenerative disc disease and chronic left paracentral annular tear at L4-5 as described. Otherwise, unremarkable MRI lumbar spine with and without contrast. No evidence for canal stenosis, herniation or nerve impingement. * MRI cervical spine wo/w contrast IMPRESSION: Abnormal signal intensity at C3 and C4. Suspected discitis with adjacent osteomyelitis. Mild spinal canal narrowing at C3-4. Small focal posterior disc protrusions at C5-6 and C6-7. Both of these are located to the left of center. D/W Neurology, Dr. Kirby. ?discitis, Consult ID to investigation IR consult of bone biospy per Infectious Disease Difficult case as patient is homeless, and has no insurance, so home IV abx will be difficult to arrange 04/11/18: D/w IR, Dr. Harrell, too high risk to do c-spine biopsy at [facility], will need higher level of care I spoke Marlee from [facility] in transfer center as no Neurosurgical information assistant here==> spoke with Dr. Foster, ok to transfer [facility] main for NSY evaluation but must go thru Hospitalist services at [facility], awaiting call back==>spoke with Hospitalist Dr. Sierra who has accepted pending bed availability for med-surg Disposition: [id number]/TX-[id number] ANOTHER TYPE HLTHCARE Time spent for discharge: 35 minutes - Discharge Diagnoses (1) CVA (cerebral vascular accident) Status: Ruled-out Core Measure Documentation - Palliative Care Palliative Care/ Comfort Measures: Not Applicable - Core Measures Any of the following diagnoses?: none - VTE Discharge Requirements Deep Vein Thrombosis/Pulmonary Embolism Present on Admission: No Has pt received <5 days of overlap therapy or INR<2.0: No Anticoagulant overlap therapy prescribed at discharge: No Contraindication No Overlap Therapy order at DC: Not Indicated Exam - Physical Exam Narrative exam: GEN: WDWN, NAD, Awake, Alert, Orientated HEENT: NCAT, EOMI, PERRL, OP Clear NECK: supple, no adenopathy, no thyromegaly, no JVD CVS/HEART: RRR, normal S1S2, pulses present bilaterally CHEST/LUNGS: CTA B, Symmetrical chest expansion, good air entry bilaterally GI/Abdomen: soft, NTND, good bowel sounds, no guarding or rebound /Bladder: no suprapubic tenderness, no CVA or paraspinal tenderness EXT/Skin: no c/c/e, no obvious rash MSK: FROM x 4 Neuro: CN 2-12 grossly intact, no new focal deficits, she doesn't cooperate with exam, doesn't follow all commands Psych: depressed - Constitutional Vitals: Temp Pulse Resp BP Pulse Ox 97.2 F L 57 L 18 99/66 99 04/11/18 07:34 04/11/18 07:34 04/11/18 07:34 04/11/18 07:34 04/11/18 07:34 Plan Activity: other (no strenous activity) Diet: low salt Follow up with: PRIMARY CARE, [Primary Care Provider] - 3-5 Days Prescriptions: Aspirin [Aspirin TAB] 325 mg PO QDAY #30 tablet Cetirizine HCl [ZyrTEC] 10 mg PO QAM 7 Days #30 capsule Fluticasone [Flonase] 1 spray NS QDAY 14 Days #1 bottle Oxycodone HCl/Acetaminophen [Percocet 7.5/325 mg] 1 each PO Q6HR PRN #24 tablet PRN Reason: Pain
[2018-04-11] MEDS: PRAVACHOL PO SCH (23:52)
[2018-04-11] MEDS: TYLENOL PO PRN (23:54)
--- NOTE | 2018-04-12 01:13 | Physician Progress Note ---
SUBJECTIVE: The patient is doing very well. She said she is much better than yesterday. She came in here with confusion and altered mental status. All of this got better. There was no evidence of any specific infection. There were findings on the MRI of the cervical spine that showed possibility of diskitis. The patient was seen by Infectious Disease who recommended biopsy to the cervical spine, C3-C4, but IR felt that this is too to do a spine biopsy and we will need higher care. Therefore, she will be transferred to Neurosurgery at [facility]. OBJECTIVE The patient is much better. No focal findings. Awake, alert, communicative, very pleasant, happy, smiling. Still somewhat weak in the lower extremities. ASSESSMENT: No definitive diagnoses. Weakness, confusion, probably related to malnutrition, not definitely proven. Findings of diskitis, C3-C4 in the MRI of the brain and also some degenerative disk disease. PLAN: The patient is being transferred to [facility] for Neurosurgery. Then, decisions will be made. The patient was stable and improved significantly when transferred out of this facility. JOB# [id number] NEELIMA/GEOVANNY
--- NOTE | 2018-04-12 09:30 | Progress Note ---
Assessment and Plan Assessment: 1) Presumed C3-C4 discitis: no evidence of sepsis, no neurologic deficits as of today ? etiology -MRI cervical spine wo/w contrast showed abnormal signal intensity at C3 and C4. Suspected discitis with adjacent osteomyelitis. Mild spinal canal narrowing at C3-4. Small focal posterior disc protrusions at C5-6 and C6-7. Both of these are located to the left of center. -blood cultures negative -CXR neg -HIV neg -CRP=0.1 -UA negative / Urine cx + colonization -CT lumbar Mild degenerative disc disease and chronic left paracentral annular tear at L4-5 as described. 2) TIA: Work-up showed CT head negative, CTA showed Carotid The anterior and the posterior circulation are intact, brain arteries and vertebral arteries appear widely patent without occlusion. MRI brain neg. 3) Homeless 4) Hypertension 5) Recent cough 6) Weight loss Plan: -Per IR, Dr. Harrell, too high risk to do c-spine biopsy at [facility] -Dr Edmonds spoke with [facility] in transfer center as no Neurosurgical construction executive here==> spoke with Dr. Foster, ok to transfer [facility] main for NSY evaluation but must go thru Hospitalist services -needs C3 and C4 biopsy / cultures -f/u blood cultures, urine culture -f/u procalcitonin -obtain TTE - pending -hold off starting antibiotics after biopsy is taken - will do vancomycin and ceftriaxone I am signing off Thank you for your consultation, will follow up with you. Melvi Quach MD Infectious Diseases Specialist [facility] ([facility]) M [phone] O [phone] Subjective Date of service: 04/12/18 Principal diagnosis: weak arms and legs Interval history: Feels ok no fever no new neuro event Microbiology: blood cx /6 ngtd urine cx /6 10-100K multiple sp Current Antimicrobials: none Previous Antimicrobials: Objective - Exam Narrative Exam: General appearance: Alert in NAD, conversant Eyes: anicteric sclerae, moist conjunctivae; no lid-lag; PERRLA HENT: Atraumatic; oropharynx clear with moist mucous membranes and no mucosal ulcerations/no oral thrush; normal hard and soft palate. Normal external ears. Neck: Trachea midline; supple, no thyromegaly or lymphadenopathy Lungs: CTA, with normal respiratory effort and no intercostal retractions CV: RRR, no murmurs Abdomen: Soft, non-tender; no masses or hepatosplenomegaly Extremities: No peripheral edema or extremity lymphadenopathy Skin: Normal temperature, turgor and texture; no rash, ulcers or subcutaneous nodules Psych: Appropriate affect, alert and oriented to person, place and time. Neuro: alert and oriented x 3. Moving all extermities Lines: - Constitutional Vitals: Vital Signs Temp Pulse Resp BP Pulse Ox 98.7 F 80 16 95/58 100 04/11/18 21:11 04/11/18 16:16 04/12/18 00:00 04/11/18 21:11 04/11/18 16:16 Temperature -Last 24 Hours Temperature 98.7 F Temperature 97.7 F - Labs CBC & Chem 7: 04/10/18 06:23 04/10/18 06:23 Labs: Abnormal lab results 04/12/18 Range/Units 05:36 POC Glucose 63 L (70-105)
[2018-04-12] MEDS: HumaLOG SUB-Q SCH (10:28)
[2018-04-12] MEDS: ASPIRIN PO SCH (10:29)
[2018-04-12] MEDS: LOVENOX SUB-Q SCH (10:29)
[2018-04-12 16:10] VITALS: BP 95/58
== END 2018-04-12 18:30 | disposition short-term general hospital (02) | DRG 69 ==
LOC: ED 15:34 → 4A 21:55 → 3A 03-28 11:18
PROVIDERS: ADMIT Internal Medicine; ATTEND Internal Medicine
DX: G45.9 Transient cerebral ischemic attack, unspecified (principal); G93.41 Metabolic encephalopathy; G82.50 Quadriplegia, unspecified; G82.20 Paraplegia, unspecified; I10 Essential (primary) hypertension; R20.2 Paresthesia of skin; E11.649 Type 2 diabetes mellitus with hypoglycemia without coma; E78.5 Hyperlipidemia, unspecified; I95.9 Hypotension, unspecified; M46.42 Discitis, unspecified, cervical region; Z88.0 Allergy status to penicillin; Z79.82 Long term (current) use of aspirin; Z79.899 Other long term (current) drug therapy
CPT/HCPCS: 36415; 70450; 70496; 70498; 70551; 70553; 71046; 72156; 72157; 72158; 80048; 80053; 80061; 81001; 82550; 82553; 82962; 83036; 84484; 85025; 85027; 85610; 85670; 85730; 86140; 87040; 87086; 87806; 93005; 93010; 96374; A9270-GY; A9577; J1650; J1815; J7030; J7040; J7042; Q9967

== ENCOUNTER 2018-05-19 07:36 | Emergency (ER) | payer SELFPAY ==
[2018-05-19] MEDS ORDERED: TORADOL IM ONE (10:36)
--- NOTE | 2018-05-19 10:36 | Emergency Department Report ---
Blank Doc - Documentation Documentation: Patient is a 47-year-old Female with past medical history of mental health issues possible homelessness who is presenting with neck pain. Patient states that she had an injury several weeks ago was sent to [place] and was released but because she started here should want to come back to get checked out. Patient is unable to tell me anything that happened at the other hospital. The patient has a affect. These CT that was done here that prompted her transfer showed that she had multilevel cervical spine advanced degenerative changes including the left ventricle hemic cord effacement left neural foraminal narrowing at C5- C6 and is C6-C7. Patient was transferred. Patient states that she's having issues with her pelvis and that she doesn't have the sensation T urinate. Patient has no issues with her bowels. Doesn't sound as though the patient has any urinary retention suggestive of a cauda equina syndrome. Patient states he does have some lower back pain but her neck is the principal area that is bothering her. Patient will have h information from [facility] sent to us so that we can make a informed decision of how to care for this patient. Er
--- NOTE | 2018-05-19 11:28 | Emergency Department Report ---
ED Back Pain/Injury HPI - General Chief Complaint: Medical Clearance Stated Complaint: BACK PAIN Time Seen by Provider: 05/19/18 10:20 Source: patient Limitations: No Limitations - History of Present Illness Initial Comments: 47-year-old female past medical history health disorder, chronic neck and back pain presents to the ED. As per nursing and EMS staff patient wandered into the ER and lie down on a bed. Patient's was found by staff and stated that she wanted a place to lie down. Patient was then registered for medical evaluation. Patient is awake and alert and states that she is here for chronic neck and lower back pain. Patient is unable to clearly express her complaints but does state that she has some increased urinary frequency and urge to urinate. Patient's is mumbling some holiness phrases but is awake and alert to person place and time. Patient specifically denies suicidal or homicidal ideation when I ask her. Patient has awkward affect. Patient states that she is homeless. Patient is asking for something to eat. MD Complaint: back pain -: week(s) Similar Symptoms Previously: Yes - Related Data Previous Rx's Medication Instructions Recorded Last Taken Type Aspirin [Aspirin TAB] 325 mg PO QDAY #30 tablet 03/29/18 Unknown Rx Cetirizine HCl [ZyrTEC] 10 mg PO QAM 7 Days #30 capsule 04/08/18 Unknown Rx Fluticasone [Flonase] 1 spray NS QDAY 14 Days #1 bottle 04/08/18 Unknown Rx Oxycodone HCl/Acetaminophen 1 each PO Q6HR PRN #24 tablet 04/08/18 Unknown Rx [Percocet 7.5/325 mg] Ibuprofen [Motrin] 600 mg PO Q8H PRN #25 tablet 05/19/18 Unknown Rx Nitrofurantoin Monohyd/M-Cryst 100 mg PO BID #14 capsule 05/19/18 Unknown Rx [Macrobid 100 mg Capsule] Allergies Allergy/AdvReac Type Severity Reaction Status Date / Time Penicillins Allergy Swelling Verified 03/27/18 15:46 ED Review of Systems ROS: Stated complaint: BACK PAIN Other details as noted in HPI Genitourinary: frequency Musculoskeletal: as per HPI, back pain ED Past Medical Hx - Past Medical History Hx Congestive Heart Failure: No Hx Diabetes: No Hx Asthma: No Hx COPD: No Additional medical history: hypoglycemia, anemia - Surgical History Additional Surgical History: c section - Social History Smoking Status: Never Smoker - Medications Home Medications: Home Medications Medication Instructions Recorded Confirmed Last Taken Type Aspirin [Aspirin TAB] 325 mg PO QDAY #30 tablet 03/29/18 Unknown Rx Cetirizine HCl [ZyrTEC] 10 mg PO QAM 7 Days #30 capsule 04/08/18 Unknown Rx Fluticasone [Flonase] 1 spray NS QDAY 14 Days #1 bottle 04/08/18 Unknown Rx Oxycodone HCl/Acetaminophen 1 each PO Q6HR PRN #24 tablet 04/08/18 Unknown Rx [Percocet 7.5/325 mg] Ibuprofen [Motrin] 600 mg PO Q8H PRN #25 tablet 05/19/18 Unknown Rx Nitrofurantoin Monohyd/M-Cryst 100 mg PO BID #14 capsule 05/19/18 Unknown Rx [Macrobid 100 mg Capsule] ED Physical Exam - General Limitations: No Limitations General appearance: alert, in no apparent distress - Head Head exam: Present: atraumatic, normocephalic - Eye Eye exam: Present: normal appearance, PERRL, EOMI - ENT ENT exam: Present: mucous membranes moist - Neck Neck exam: Present: normal inspection - Respiratory Respiratory exam: Present: normal lung sounds bilaterally. Absent: respiratory distress - Cardiovascular Cardiovascular Exam: Present: regular rate, normal rhythm. Absent: systolic murmur, diastolic murmur, rubs, gallop - GI/Abdominal GI/Abdominal exam: Present: soft, normal bowel sounds - Extremities Exam Extremities exam: Present: normal inspection - Back Exam Back exam: Present: normal inspection - Neurological Exam Neurological exam: Present: alert, oriented X3 - Psychiatric Psychiatric exam: Present: normal affect (odd affect on exam, pt mutters holiness phrases) - Skin Skin exam: Present: warm, dry, intact, normal color. Absent: rash ED Course Vital Signs 05/19/18 08:19 Temperature 97.8 F Pulse Rate 78 Respiratory 16 Rate Blood Pressure 114/52 O2 Sat by Pulse 100 Oximetry ED Medical Decision Making - Medical Decision Making A/P: Chronic back and neck pain, possible UTI 1-case discussed with Dr. Rodriguez also the patient 2-urinalysis shows small leukocyte esterase. Patient is able to state that she is urinating slightly more than usual. Does not discretely state that she is losing continence of her bladder or bowels. Patient is awake alert and oriented 3 does not endorse any suicidal or homicidal ideation. 3-medical records were requested from [facility]. As per medical records patient was assessed by trauma team and orthopedic on-call surgeons at [place] when transferred to [place] on 04/26/18. Patient found to have chronic neuropathy and degenerative disease of the cervical spine. Patient was assessed by taking there discharged with outpatient follow-up. I advised patient that she must follow-up with outpatient orthopedics and provided her with another referral. As patient does exhibit some disorganized speech I consulted Ms. Terrazas of [facility] to provide her with outpatient services. This behavior is chronic and not new. Patient exhibited this behavior when I first examined her in April 2018 4- patient has no clinical signs of cauda equina at this time and she is ambulatory is moving all 4 extremities without difficulty. Patient is able to stand up against gravity. She is able to void urine voluntarily. I observed this as patient went to the restroom twice while in the ED during this assessment. I specifically asked her if she has been urinating or defecating on herself in voluntarily and she said no. 5- short course of Macrobid. Follow up with outpatient primary care and orthopedics 6-Ms. Terrazas offered patient's outpatient list of shelters but patient refused stated she was not interested in taking listless. Critical care attestation.: If time is entered above; I have spent that time in minutes in the direct care of this critically ill patient, excluding procedure time. ED Disposition Clinical Impression: Chronic back pain Qualifiers: Back pain location: low back pain Back pain laterality: unspecified Sciatica presence: without sciatica Qualified Code(s): M54.5 - Low back pain; G89.29 - Other chronic pain UTI (urinary tract infection) Qualifiers: Urinary tract infection type: site unspecified Hematuria presence: without hematuria Qualified Code(s): N39.0 - Urinary tract infection, site not specified Disposition: - TO HOME OR SELFCARE Is pt being admited?: No Does the pt Need Aspirin: No Condition: Stable Instructions: Urinary Tract Infection in Women (ED), Chronic Back Pain (ED) Prescriptions: Ibuprofen [Motrin] 600 mg PO Q8H PRN #25 tablet PRN Reason: Pain Nitrofurantoin Monohyd/M-Cryst [Macrobid 100 mg Capsule] 100 mg PO BID #14 capsule Referrals: [facility] [Provider Group] - 3-5 Days [facility] [Provider Group] - 3-5 Days DAREN FLORES MD [Staff Physician] - 3-5 Days Time of Disposition: 13:06
[2018-05-19 12:23] LABS: HCG Qualitative,Urine Negative (Negative)
[2018-05-19 12:23] LABS: Bacteria,Urine 1+ /HPF (Negative); Bilirubin,Urine NEG (Negative); Blood,Urine NEG (Negative); Color,Urine Yellow (Yellow); Mucus,Urine 2+ /HPF; Protein,Urine <15 mg/dL mg/dL (Negative); Urobilinogen,Urine < 2.0 mg/dL (<2.0)
[2018-05-19] MEDS ORDERED: MACROBID PO ONE (13:07)
[2018-05-19] MEDS ORDERED: BACTRIM DS ONE (13:16)
[2018-05-19] MEDS ORDERED: BACTRIM DS PO ONE (13:36)
[2018-05-19 14:10] VITALS: BP 120/52
== END 2018-05-19 13:32 | disposition home or self-care (01) ==
LOC: ED 07:36
DX: M54.5 Low back pain (principal); G89.29 Other chronic pain; N39.0 Urinary tract infection, site not specified; D64.9 Anemia, unspecified; Z88.0 Allergy status to penicillin; Z79.82 Long term (current) use of aspirin
CPT/HCPCS: 81001; 81025; 96372; 99283; J1885

== ENCOUNTER 2018-05-24 03:44 | Emergency (ER) | payer SELFPAY ==
[2018-05-24 06:34] LABS: Bilirubin,Urine NEG (Negative); Blood,Urine SM (Negative); Color,Urine Yellow (Yellow); Mucus,Urine 1+ /HPF; Protein,Urine <15 mg/dL mg/dL (Negative); Urobilinogen,Urine < 2.0 mg/dL (<2.0)
[2018-05-24 06:39] LABS: HCG Qualitative,Urine Negative (Negative)
[2018-05-24] MEDS ORDERED: REGLAN IM ONE (08:08)
[2018-05-24] MEDS ORDERED: BENADRYL IM ONE (08:08)
[2018-05-24] MEDS ORDERED: TORADOL IM ONE (08:08)
[2018-05-24 08:22] LABS: Amphetamine Screen,Urine PRESUMPTIVE NEGATIVE; Benzodiazepines Screen,Urine PRESUMPTIVE NEGATIVE; Cannabinoid Screen,Urine PRESUMPTIVE NEGATIVE; Cocaine Screen,Urine PRESUMPTIVE NEGATIVE; Methadone Screen,Urine PRESUMPTIVE NEGATIVE; Opiate Screen,Urine PRESUMPTIVE NEGATIVE
--- NOTE | 2018-05-24 08:39 | Cat Scan Report ---
CT HEAD WITHOUT CONTRAST: HISTORY: Headache. TECHNIQUE: Sequential 2.5mm CT images. COMPARISON: 04/26/18. FINDINGS: Cerebral Parenchyma: Within normal limits. Cerebellum: Within normal limits. Brainstem: Within normal limits. Ventricles: Normal. Sella: Normal. Extra-axial spaces: Normal. Basal Cisterns: Normal. Intracranial Hemorrhage: None. Midline Shift: None. Calvarium: Normal. Left frontal scalp swelling has resolved since the previous exam. Sinuses: Normal. Mastoid Air Cells: Normal. Visualized Orbits: Normal. IMPRESSION: Cranial CT scan within normal limits.
--- NOTE | 2018-05-24 09:14 | Emergency Department Report ---
ED Headache HPI - General Chief Complaint: Back Pain/Injury Stated Complaint: HEADACHE Time Seen by Provider: 05/24/18 07:50 Source: patient, old records Exam Limitations: no limitations - History of Present Illness Initial Comments: 47-year-old female with a past medical history of hypoglycemia, anemia, previous presents to the hospital complaints with of headache and back pain. Patient overall is a poor historian a mumbling during examination. She complains of a frontal headache for at least 4 weeks. Headache does not occur daily but is frequent. No complaints of nausea, vomiting, focal weakness , numbness, or blurred vision. Patient auscultated some suprapubic cramping and apparently had some bladder issues which she is unable to clearly communicate. Allergies/Adverse Reactions: Allergies Penicillins Allergy (Verified 05/24/18 03:53) Swelling Home Medications: Ambulatory Orders Aspirin [Aspirin TAB] 325 mg PO QDAY #30 tablet 03/29/18 Cetirizine HCl [ZyrTEC] 10 mg PO QAM 7 Days #30 capsule 04/08/18 Fluticasone [Flonase] 1 spray NS QDAY 14 Days #1 bottle 04/08/18 Oxycodone HCl/Acetaminophen [Percocet 7.5/325 mg] 1 each PO Q6HR PRN #24 tablet 04/08/18 Ibuprofen [Motrin] 600 mg PO Q8H PRN #25 tablet 05/19/18 Nitrofurantoin Monohyd/M-Cryst [Macrobid 100 mg Capsule] 100 mg PO BID #14 capsule 05/19/18 Butalb/Acetamin/Caff 50-325-40 [Fioricet] 1 tab PO Q6HR PRN #20 tab 05/24/18 Ibuprofen [Motrin] 600 mg PO Q8H PRN #20 tablet 05/24/18 Sulfamethoxazole/Trimethoprim [Bactrim DS TAB] 1 each PO BID #6 tablet 05/24/18 ED Review of Systems ROS: Stated complaint: HEADACHE Other details as noted in HPI Comment: All other systems reviewed and negative ED Past Medical Hx - Past Medical History Hx Congestive Heart Failure: No Hx Diabetes: No Hx Asthma: No Hx COPD: No Additional medical history: hypoglycemia, anemia - Surgical History Additional Surgical History: c section - Social History Smoking Status: Never Smoker Substance Use Type: None - Medications Home Medications: Home Medications Medication Instructions Recorded Confirmed Last Taken Type Aspirin [Aspirin TAB] 325 mg PO QDAY #30 tablet 03/29/18 Unknown Rx Cetirizine HCl [ZyrTEC] 10 mg PO QAM 7 Days #30 capsule 04/08/18 Unknown Rx Fluticasone [Flonase] 1 spray NS QDAY 14 Days #1 bottle 04/08/18 Unknown Rx Oxycodone HCl/Acetaminophen 1 each PO Q6HR PRN #24 tablet 04/08/18 Unknown Rx [Percocet 7.5/325 mg] Ibuprofen [Motrin] 600 mg PO Q8H PRN #25 tablet 05/19/18 Unknown Rx Nitrofurantoin Monohyd/M-Cryst 100 mg PO BID #14 capsule 05/19/18 Unknown Rx [Macrobid 100 mg Capsule] Butalb/Acetamin/Caff 50-325-40 1 tab PO Q6HR PRN #20 tab 05/24/18 Unknown Rx [Fioricet] Ibuprofen [Motrin] 600 mg PO Q8H PRN #20 tablet 05/24/18 Unknown Rx Sulfamethoxazole/Trimethoprim 1 each PO BID #6 tablet 05/24/18 Unknown Rx [Bactrim DS TAB] ED Physical Exam - General Limitations: No Limitations - Other Other exam information: General: No limitations, patient is alert in no acute distress Head exam: Atraumatic, normocephalic Eyes exam: Normal appearance, pupils equal reactive to light, extraocular movements intact ENT: Moist mucous membrane, normal oropharynx Neck exam: Normal inspection, full range of motion, no meningismus nontender Respiratory exam: Clear to auscultation bilateral, no wheezes, rales, crackles Cardiovascular: Normal rate and rhythm, normal heart sounds Abdomen: Soft, nondistended, mild suprapubic tenderness, with normal bowel sounds, no rebound, or guarding Extremity: Full range of motion normal inspection no deformity Back: Normal Inspection, full range of motion, no tenderness Neurologic: Alert, oriented x3, cranial nerves intact, no motor or sensory deficit Psychiatric: normal affect, normal mood Skin: Warm, dry, intact ED Course Vital Signs 05/24/18 05/24/18 03:54 07:43 Temperature 97.4 F L Pulse Rate 62 59 L Respiratory 18 16 Rate Blood Pressure 109/67 Blood Pressure 110/64 [Left] O2 Sat by Pulse 100 100 Oximetry - Reevaluation(s) Reevaluation #1: 05/24/18 09:13 Patient treated with Reglan, Benadryl, and Toradol ED Medical Decision Making - Lab Data Lab Results 05/24/18 05/24/18 Range/Units 06:17 06:17 Urine Color Yellow (Yellow) Urine Turbidity Clear (Clear) Urine pH 5.0 (5.0-7.0) Ur Specific [place] 1.021 (1.003-1.030) Urine Protein <15 mg/dl (Negative) mg/dL Urine Glucose (UA) Neg (Negative) mg/dL Urine Ketones Neg (Negative) mg/dL Urine Blood Sm (Negative) Urine Nitrite Neg (Negative) Urine Bilirubin Neg (Negative) Urine Urobilinogen < 2.0 (<2.0) mg/dL Ur Leukocyte Esterase Sm (Negative) Urine WBC (Auto) 8.0 H (0.0-6.0) /HPF Urine RBC (Auto) 1.0 (0.0-6.0) /HPF U Epithel Cells (Auto) 8.0 (0-13.0) /HPF Urine Mucus 1+ /HPF Urine HCG, Qual Negative (Negative) Urine Opiates Screen Presumptive negative Urine Methadone Screen Presumptive negative Ur Barbiturates Screen Presumptive negative Ur Phencyclidine Scrn Presumptive negative Ur Amphetamines Screen Presumptive negative U Benzodiazepines Scrn Presumptive negative Urine Cocaine Screen Presumptive negative U Marijuana (THC) Screen Presumptive negative Drugs of Abuse Note Disclamer - Radiology Data Radiology results: report reviewed ct head: IMPRESSION: Cranial CT scan within normal limits. - Medical Decision Making Upon previous medical record review patient was here on May 19 with similar behavior. Apparently [facility] medical records were obtained and patient is a chronic neuropathy and degenerative disc disease of the cervical spine. Patient also had a mental health consultation during her evaluation for her disorganized conversation and this behavior was noted to be chronic and not new. Patient was discharged on a short course of Macrobid and instructed to follow up. Patient was also trying to sleep in the ED suspected to be homeless. Patient be discharged home with Bactrim for 3 days given her leukocytosis and a mild increase in WBC count fiorcet for OTERO and d/c with f/u - Differential Diagnosis migraine, tension headache, intracranial hemorrhage, UTI, Critical Care Time: No Critical care attestation.: If time is entered above; I have spent that time in minutes in the direct care of this critically ill patient, excluding procedure time. ED Disposition Clinical Impression: Headache, Chronic back pain, Weakness Disposition: TO HOME OR SELFCARE Is pt being admited?: No Does the pt Need Aspirin: No Condition: Stable Instructions: Acute Headache (ED), Urinary Tract Infection in Women (ED), Chronic Back Pain (ED) Additional Instructions: Take the medication as prescribed. Follow up for further workup. Prescriptions: Butalb/Acetamin/Caff 50-325-40 [Fioricet] 1 tab PO Q6HR PRN #20 tab PRN Reason: Headache Ibuprofen [Motrin] 600 mg PO Q8H PRN #20 tablet PRN Reason: Pain Sulfamethoxazole/Trimethoprim [Bactrim DS TAB] 1 each PO BID #6 tablet Referrals: [facility] [Provider Group] - 3-5 Days Time of Disposition: 09:21
[2018-05-24 09:53] VITALS: BP 93/57
== END 2018-05-24 09:56 | disposition home or self-care (01) ==
LOC: ED 03:44
DX: R51 Headache (principal); M54.89 Other dorsalgia; G89.29 Other chronic pain; R10.30 Lower abdominal pain, unspecified; R53.1 Weakness; E16.2 Hypoglycemia, unspecified; Z88.0 Allergy status to penicillin; Z86.2 Personal history of diseases of the blood and blood-forming organs and certain disorders involving the immune mechanism; Z79.899 Other long term (current) drug therapy
CPT/HCPCS: 70450; 80307; 81001; 81025; 96372; 99284; J1200; J1885; J2765

== ENCOUNTER 2018-05-25 03:35 | Emergency (ER) | payer SELFPAY ==
[2018-05-25 08:09] VITALS: BP 112/67
[2018-05-25 08:31] LABS: Bilirubin,Urine NEG (Negative); Blood,Urine SM (Negative); Color,Urine Yellow (Yellow); Mucus,Urine 3+ /HPF
[2018-05-25 08:36] LABS: HCG Qualitative,Urine Negative (Negative)
== END 2018-05-25 06:55 | disposition left against medical advice (07) ==
LOC: ED 03:35
DX: M54.2 Cervicalgia (principal); M54.89 Other dorsalgia; R10.2 Pelvic and perineal pain; Z53.21 Procedure and treatment not carried out due to patient leaving prior to being seen by health care provider
CPT/HCPCS: 81001; 81025

== ENCOUNTER 2018-05-25 08:05 | Emergency (ER) | payer SELFPAY ==
[2018-05-25 08:15] VITALS: BP 127/76
== END 2018-05-25 11:00 | disposition left against medical advice (07) ==
LOC: ED 08:05
DX: R51 Headache (principal); Z53.21 Procedure and treatment not carried out due to patient leaving prior to being seen by health care provider

== ENCOUNTER 2018-05-29 02:35 | Emergency (ER) | payer SELFPAY ==
[2018-05-29 07:57] VITALS: BP 144/81
--- NOTE | 2018-05-29 09:50 | Emergency Department Report ---
Chief Complaint: Back Pain/Injury Stated Complaint: BLADDER PAIN Time Seen by Provider: 05/29/18 09:34 - HPI History of Present Illness: 47 yo AA F presents to the ED with the complaint of some bladder incontince but also increased urinary frequency. She has acute on chronic low back pain with pain to the right hip and some numbness to the right thigh. She has a history of chronic back and neck pains. She was seen here in April and eventually transferred to [place] for suspicion of C2-3 discitis. She was seen here three days ago for simililar symptoms and was diagnosed with UTI and placed on abx. She has not taken all of the antibiotics because of concern for side effects. Patient says she is homeless. - ROS Review of Systems: Positive for back pain, right hip pain, thigh numbness, increased urinary frequency and occasional incontinence. Negative for headache, vision change, slurred speech, CP, SOB, Fever - Exam Vital Signs: Vital Signs 05/29/18 05/29/18 03:05 07:56 Temperature 97.5 F L 97.5 F L Pulse Rate 68 63 Respiratory 18 17 Rate Blood Pressure 123/75 144/81 O2 Sat by Pulse 100 100 Oximetry Physical Exam: Awake and alert. No obvious focal deficits. Normal heart and lung sounds to auscultation. Calm and appropriate. MSE screening note: Focused history and physical exam performed. Due to findings the following was ordered: I ordered a CBC, BMP, urinalysis, Upreg. Xrays of the lumbar and thoracic spine. ED Disposition for MSE Condition: Stable Referrals: PRIMARY CARE [Primary Care Provider] - 3-5 Days
--- NOTE | 2018-05-29 10:19 | XRay Report ---
AP AND LATERAL LUMBOSACRAL SPINE: History: Back pain. The vertebral bodies are well mineralized and normal in alignment and vertebral height with well preserved interspace distances. The visualized portions of the posterior elements are normal. IMPRESSION: Unremarkable lumbar spine.
--- NOTE | 2018-05-29 10:20 | XRay Report ---
THORACIC SPINE, 2 VIEWS: HISTORY: back pain. Normal bone mineralization. No evidence for compression deformity, malalignment, or bone lesion. Minimal anterior spurring is noted in the mid thoracic spine. The posterior ribs are intact. The paraspinal soft tissues are within normal limits. IMPRESSION: Mild thoracic spondylosis. No acute process identified.
[2018-05-29 10:43] LABS: Hematocrit 35.9 % (30.3-42.9); Hemoglobin 12.1 gm/dl (10.1-14.3); Mean Corpuscular HGB Conc 34 % (30-34); Mean Corpuscular Hemoglobin 32 pg (28-32); Mean Corpuscular Volume 94 fl (79-97); Platelet Count 319 K/mm3 (140-440); Red Blood Count 3.82 M/mm3 (3.65-5.03); Red Cell Distribution Width 18.6 % (13.2-15.2)
[2018-05-29 11:02] LABS: BUN/Creatinine Ratio 23; Blood Urea Nitrogen 14 mg/dL (7-17); Calcium 9.5 mg/dL (8.4-10.2); Hemolysis Index 12
[2018-05-29 12:34] LABS: Bilirubin,Urine NEG (Negative); Blood,Urine NEG (Negative); Color,Urine Yellow (Yellow); Mucus,Urine 1+ /HPF; Protein,Urine <15 mg/dL mg/dL (Negative); Urobilinogen,Urine < 2.0 mg/dL (<2.0)
--- NOTE | 2018-05-29 13:01 | Emergency Department Report ---
ED Back Pain/Injury HPI - General Chief Complaint: Back Pain/Injury Stated Complaint: BLADDER PAIN Time Seen by Provider: 05/29/18 09:34 Source: patient Limitations: No Limitations - History of Present Illness Initial Comments: This is a 47-year-old -[place] female who presents with urinary frequency and bladder spasms. 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 Patient is homeless. She she is also complaining of acute low back pain radiating into the right hip. Patient has a history of chronic back pain. Patient reports bladder spasms are causing incontinence. Sometimes she make it to the toilet and sometimes not. Patient denies dysuria, nausea or vomiting, fever, chest pain, and change in bowel pattern. MD Complaint: back pain -: month(s) Similar Symptoms Previously: Yes Place: home Radiation: other Severity: moderate Severity scale (0 -10): 5 Quality: aching (right hip) Consistency: intermittent Improves With: none Worsens With: movement, walking Context: unknown Associated Symptoms: difficulty urinating, incontinence. denies: confusion, weakness, chest pain, numbness, difficulty walking, cough, diaphoresis, fever/ chills, constipation, headaches, abdominal pain, loss of appetite, malaise, nausea/vomiting, rash, seizure, shortness of breath, syncope - Related Data Previous Rx's Medication Instructions Recorded Last Taken Type Aspirin [Aspirin TAB] 325 mg PO QDAY #30 tablet 03/29/18 Unknown Rx Cetirizine HCl [ZyrTEC] 10 mg PO QAM 7 Days #30 capsule 04/08/18 Unknown Rx Fluticasone [Flonase] 1 spray NS QDAY 14 Days #1 bottle 04/08/18 Unknown Rx Oxycodone HCl/Acetaminophen 1 each PO Q6HR PRN #24 tablet 04/08/18 Unknown Rx [Percocet 7.5/325 mg] Ibuprofen [Motrin] 600 mg PO Q8H PRN #25 tablet 05/19/18 Unknown Rx Nitrofurantoin Monohyd/M-Cryst 100 mg PO BID #14 capsule 05/19/18 Unknown Rx [Macrobid 100 mg Capsule] Butalb/Acetamin/Caff 50-325-40 1 tab PO Q6HR PRN #20 tab 05/24/18 Unknown Rx [Fioricet] Ibuprofen [Motrin] 600 mg PO Q8H PRN #20 tablet 05/24/18 Unknown Rx Sulfamethoxazole/Trimethoprim 1 each PO BID #6 tablet 05/24/18 Unknown Rx [Bactrim DS TAB] Naproxen [Naprosyn] 500 mg PO BID PRN #15 tablet 05/29/18 Unknown Rx Allergies Allergy/AdvReac Type Severity Reaction Status Date / Time Penicillins Allergy Swelling Verified 05/25/18 08:05 ED Review of Systems ROS: Stated complaint: BLADDER PAIN Other details as noted in HPI Constitutional: denies: chills, fever Respiratory: denies: cough, shortness of breath, wheezing Cardiovascular: denies: chest pain, palpitations Gastrointestinal: denies: abdominal pain, nausea, diarrhea Genitourinary: urgency, frequency. denies: dysuria, hematuria, discharge Musculoskeletal: back pain (bilateral low back pain). denies: joint swelling, arthralgia Skin: denies: rash, lesions Neurological: denies: headache, weakness, paresthesias Psychiatric: denies: anxiety, depression ED Past Medical Hx - Past Medical History hypoglycemia, anemia. chronic back Family history: hypertension ED Back Pain Physical Exam - Exam General: Vital signs noted. No distress. Alert and acting appropriately. Back/Abdomen: Yes Perilumbar Tenderness, No Abdominal Tenderness, No Sacroiliac Tenderness, No Flank Tenderness, No Straight Leg Raise Pain Neuro: Yes Normal Sensation, Yes Normal DTR's, Yes Normal Gait, No Motor Weakness ED Course Vital Signs 05/29/18 05/29/18 05/29/18 03:05 07:56 11:53 Temperature 97.5 F L 97.5 F L Pulse Rate 68 63 Respiratory 18 17 18 Rate Blood Pressure 123/75 144/81 O2 Sat by Pulse 100 100 99 Oximetry Ed Back Pain Tests - Tests Tests: Normal UA, Abnormal X Rays (Mild thoracic spondylosis. No acute osseous identified. Unremarkable lumbar spine.) ED Medical Decision Making - Lab Data Result diagrams: 05/29/18 10:23 05/29/18 10:23 Lab Results 05/29/18 05/29/18 05/29/18 Range/Units 10:23 10:23 10:23 WBC 3.6 L (4.5-11.0) K/mm3 RBC 3.82 (3.65-5.03) M/mm3 Hgb 12.1 (10.1-14.3) gm/dl Hct 35.9 (30.3-42.9) % MCV 94 (79-97) fl MCH 32 (28-32) pg MCHC 34 (30-34) % RDW 18.6 H (13.2-15.2) % Plt Count 319 (140-440) K/mm3 Sodium 140 (137-145) mmol/L Potassium 3.4 L (3.6-5.0) mmol/L Chloride 99.9 (98-107) mmol/L Carbon Dioxide 26 (22-30) mmol/L Anion Gap 18 mmol/L BUN 14 (7-17) mg/dL Creatinine 0.6 L (0.7-1.2) mg/dL Estimated GFR > 60 ml/min BUN/Creatinine Ratio 23 % Glucose 86 (65-100) mg/dL Calcium 9.5 (8.4-10.2) mg/dL HCG, Qual Negative (Negative) Urine Color (Yellow) Urine Turbidity (Clear) Urine pH (5.0-7.0) Ur Specific [place] (1.003-1.030) Urine Protein (Negative) mg/dL Urine Glucose (UA) (Negative) mg/dL Urine Ketones (Negative) mg/dL Urine Blood (Negative) Urine Nitrite (Negative) Urine Bilirubin (Negative) Urine Urobilinogen (<2.0) mg/dL Ur Leukocyte Esterase (Negative) Urine WBC (Auto) (0.0-6.0) /HPF Urine RBC (Auto) (0.0-6.0) /HPF U Epithel Cells (Auto) (0-13.0) /HPF Urine Mucus /HPF //18 Range/Units Unknown WBC (4.5-11.0) K/mm3 RBC (3.65-5.03) M/mm3 Hgb (10.1-14.3) gm/dl Hct (30.3-42.9) % MCV (79-97) fl MCH (28-32) pg MCHC (30-34) % RDW (13.2-15.2) % Plt Count (140-440) K/mm3 Sodium (137-145) mmol/L Potassium (3.6-5.0) mmol/L Chloride (98-107) mmol/L Carbon Dioxide (22-30) mmol/L Anion Gap mmol/L BUN (7-17) mg/dL Creatinine (0.7-1.2) mg/dL Estimated GFR ml/min BUN/Creatinine Ratio % Glucose (65-100) mg/dL Calcium (8.4-10.2) mg/dL HCG, Qual (Negative) Urine Color Yellow (Yellow) Urine Turbidity Clear (Clear) Urine pH 5.0 (5.0-7.0) Ur Specific [place] 1.029 (1.003-1.030) Urine Protein <15 mg/dl (Negative) mg/dL Urine Glucose (UA) Neg (Negative) mg/dL Urine Ketones Neg (Negative) mg/dL Urine Blood Neg (Negative) Urine Nitrite Neg (Negative) Urine Bilirubin Neg (Negative) Urine Urobilinogen < 2.0 (<2.0) mg/dL Ur Leukocyte Esterase Tr (Negative) Urine WBC (Auto) 3.0 (0.0-6.0) /HPF Urine RBC (Auto) 3.0 (0.0-6.0) /HPF U Epithel Cells (Auto) < 1.0 (0-13.0) /HPF Urine Mucus 1+ /HPF - Radiology Data Radiology results: report reviewed AP AND LATERAL LUMBOSACRAL SPINE: History: Back pain. The vertebral bodies are well mineralized and normal in alignment and vertebral height with well preserved interspace distances. The visualized portions of the posterior elements are normal. IMPRESSION: Unremarkable lumbar spine. Thoracic Spine Mild thoracic spondylosis. No acute osseous identified. - Medical Decision Making This is a 47 y.o. female presents with bladder spasms and low back pain. Patient was examined by me and Dr. Billings. Patient is nontoxic appearing and stable. I obtained BMP, CBC, and urine hcg. Negative urine hcg, urinalysis unremarkable, potassium low, and WBC's low. Xray of thoracic and lumbar dictated by radiologist. Mild thoracic spondylosis. No acute osseous identified. Unremarkable lumbar spine. Patient given klor-con 40 mEq while in ER. Patient informed of results. Start naproxen for pain. Plan discussed with patient to discharge home and treat outpatient. She agrees with ER plan. Patient discharged home in stable condition. Follow up with PCP in 2-3 days. Critical care attestation.: If time is entered above; I have spent that time in minutes in the direct care of this critically ill patient, excluding procedure time. ED Disposition Clinical Impression: Low back pain Qualifiers: Chronicity: acute Back pain laterality: bilateral Sciatica presence: without sciatica Qualified Code(s): M54.5 - Low back pain Thoracic spondylosis Qualifiers: Spinal osteoarthritis complication: with radiculopathy Qualified Code(s): M47.24 - Other spondylosis with radiculopathy, thoracic region Disposition: TO HOME OR SELFCARE Is pt being admited?: No Does the pt Need Aspirin: No Condition: Stable Instructions: Lumbar Radiculopathy (ED), Chronic Back Pain (ED) Additional Instructions: Rest Use ice or heat on affected area for 20 minutes and off for 2 hours. Take pain medication as needed for pain. Follow up with Primary Care Provider in 2-3 days. Prescriptions: Naproxen [Naprosyn] 500 mg PO BID PRN #15 tablet PRN Reason: Pain, Moderate (4-6) Referrals: [facility] [Outside] - 3-5 Days [facility] [Outside] - 3-5 Days DAREN FLORES MD [Staff Physician] - 3-5 Days Time of Disposition: 13:15 Print Language: PANAMANIAN
[2018-05-29] MEDS ORDERED: K-DUR PO ONE (13:11)
[2018-05-29 13:25] LABS: Basophils % (Manual) 0 % (0.0-1.8); Macrocytosis Few; Platelet Estimate Consistent w Auto; Total Cells Counted 100
== END 2018-05-29 13:39 | disposition home or self-care (01) ==
LOC: ED 02:35
DX: M54.5 Low back pain (principal); G89.29 Other chronic pain; M47.24 Other spondylosis with radiculopathy, thoracic region; R35.0 Frequency of micturition; N32.89 Other specified disorders of bladder; E16.2 Hypoglycemia, unspecified; Z88.0 Allergy status to penicillin
CPT/HCPCS: 36415; 72072; 72100; 80048; 81001; 84703; 85007; 85025; 99284